=== PATIENT | female | born 1960 | race Caucasian/White ===

== ENCOUNTER 2016-09-04 11:00 | Emergency (ER) | payer OTHER ==
--- NOTE | 2016-09-04 11:34 | PDOC ---
History of Present Illness - General Chief Complaint: Syncope/Near Syncope Stated Complaint: SYNCOPE Time Seen by Provider: 09/04/16 11:20 - History of Present Illness Initial Comments: 09/04/16 14:23 Complaint: Headache History of present illness: Patient was accompanying her to the ER for treatment of his nosebleed. At the time of discharge, the patient felt faint and slowly collapsed to the floor. This was witnessed and she did not strike her head or appear to injure her neck or extremities. She appeared to be unresponsive for approximately 30 seconds, then awoke, without confusion but with a left lower facial droop and slurred speech. This lasted for several minutes, and then resolve spontaneously as well. Her reports that this has happened many times in the past, in similar situations, always with the same facial deformity and difficulty speaking. Review of systems: After the incident, the patient reported headache. However, there were no visual or focal neurologic symptoms or unsteadiness of gait. There was no chest pain, shortness of breath, abdominal pain, nausea, vomiting, diarrhea. Remainder systems reviewed and found to be negative Past medical history: Fibromyalgia, anxiety, depression, COPD, GERD, headaches, chronic narcotic use. She is maintained on a morphine patch as well as Valium. She takes Plavix because of these episodes, presumably because her doctor feels this may be a TIA. 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 She has relatives in [place] and [place], and her has a brother in the [place] area. She denies alcohol, tobacco, other street drugs or nonprescription drugs, prior use of heroin or other intravenous substances. Family history: Reviewed and noncontributory including early coronary artery disease, metabolic disease including diabetes, cancer, psychiatric or addictive diseases Physical exam: Alert, oriented 3, well-developed well-nourished, no acute distress after syncopal episode. Afebrile, vital signs normal. There was transient left lower facial paralysis and slurred speech which resolved and minutes. According to her , she has had exactly the same symptoms on numerous occasions after fainting in the past PERRLA 3 mm, fundi benign with sharp disc margins and good central venous pulsations, ENT clear Neck without tenderness or deformity, full range of motion without pain, no nodes masses or bruits Lungs clear to P&A with full breath sounds throughout bilaterally. No chest wall or rib cage tenderness or deformity CV S1 and S2 normal without murmur rub or gallop pulses full and symmetric no JVD or edema no bruits Abdomen soft nontender without mass or organomegaly No pelvis or spine point tenderness or deformity Extremities no CCE. Full range of motion of the hips shoulders, and other joints , without visible or palpable signs of trauma Neurological C2 to 12 intact. Strength full and symmetric. No focal sensory or motor deficits. Gait stable and unimpaired Impression: Vasovagal syncope with transient neurological deficits, completely resolved. Identical to similar episodes in the past, according to her who is in attendance. Plan: CT labs and observation. Further medical therapy depending on results Past History - Past Medical History Allergies/Adverse Reactions: Allergies Allergy/AdvReac Type Severity Reaction Status Date / Time cephalexin monohydrate Allergy Verified 09/04/16 11:10 [From Keflex] erythromycin base Allergy Verified 09/04/16 11:10 ibuprofen Allergy Verified 09/04/16 11:10 Penicillins Allergy Verified 09/04/16 11:10 Home Medications: Ambulatory Orders Folic Acid 0.8 mg PO DAILY 10/21/12 Tiotropium [place] [Spiriva] 1 inh IH DAILY 10/21/12 Clopidogrel Bisulfate [Plavix -] 75 mg PO DAILY 05/15/15 Omeprazole [Prilosec (RX)] 40 mg PO DAILY 05/15/15 Amitriptyline HCl [Elavil -] 25 mg PO BID #60 tablet 05/16/15 Diazepam [Valium] 5 mg PO BID 08/01/15 FENTANYL 25mcg PATCH [DURAGESIC 25mcg PATCH -] 37.5 each TD Q72H 08/01/15 Zolpidem Tartrate [Ambien] 10 mg PO HS 08/01/15 Amitriptyline HCl [Elavil -] 75 mg PO HS tablet 08/04/15 Bupropion HCl [Wellbutrin Xl -] 150 mg PO DAILY tab.sr.24h 08/04/15 Topiramate [Topamax -] 25 mg PO BID tablet 08/04/15 Anemia: No Asthma: Yes Cancer: Yes (cervical) CVA: Yes (tiax2, 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) COPD: No CHF: No Dementia: No Diabetes: No GI Disorders: No Disorders: No HTN: Yes Hypercholesterolemia: No Liver Disease: No Seizures: No Thyroid Disease: No - Surgical History Abdominal Surgery: Yes Appendectomy: Yes Cholecystectomy: Yes - Psycho/Social/Smoking Cessation Hx Anxiety: No Suicidal Ideation: No Smoking Status: No Smoking History: Current every day smoker Have you smoked in the past 12 months: Yes Number of Cigarettes Smoked Daily: 10 'Breaking Loose' booklet given: 08/02/15 Hx Alcohol Use: No Drug/Substance Use Hx: No Substance Use Type: None Hx Substance Use Treatment: No Neuro Specific PMHX - Complaint Specific PMHX Glaucoma: No Herniated Disk: No Laminectomy: No Migraine: Yes Multiple Sclerosis: No TIA: No ED Treatment Course - LABORATORY CBC & Chemistry Diagram: 09/04/16 11:35 09/04/16 11:35 Medical Decision Making - Medical Decision Making 09/04/16 12:54 CT of the head and neck are normal. Patient is complaining of her usual headache for which she is maintained on morphine patch. She refuses to try acetaminophen. Morphine was administered with good relief of pain. 09/04/16 14:33 Patient's headache is much improved after the administration of morphine and Zofran. Neurological exam remains intact. EKG reviewed: Nonspecific T-wave changes but no acute ST depressions or elevations, and normal sinus rhythm CT of the head and neck show no abnormalities. Patient fully alert and in no pain or other distress upon discharge with her to follow-up as directed. Referred to cardiology. *DC/Admit/Observation/Transfer Diagnosis at time of Disposition: Vasovagal syncope - Discharge Dispostion Disposition: HOME Condition at time of disposition: Improved Admit: No - Referrals Referrals: Rosette Nolasco MD [Staff Physician] - 2 Days - Patient Instructions Printed Discharge Instructions: DI for Syncope in Adults (Fainting)
[2016-09-04 11:43] VITALS: BMI 28.3
[2016-09-04 12:00] LABS: INR 0.96 (0.82-1.09); PROTHROMBIN TIME (PATIENT) 10.8 SEC (10.2-13.0)
[2016-09-04 12:04] LABS: ALBUMIN 4.2 g/dl (3.5-5.0); ALK PHOS 125 U/L (32-92); ANION GAP 9 (8-16); BILIRUBIN,TOTAL 0.6 mg/dl (0.2-1.0); CALCIUM 9.6 mg/dl (8.4-10.2); CO2 23 mmol/L (22-28); CPK(DFH) 113 IU/L (26-140); CREATININE 0.7 mg/dl (0.6-1.3); GLUCOSE,RANDOM 110 mg/dl (74-106); SGOT/AST 22 U/L (10-42); SGPT/ALT 23 U/L (10-40); TOT PROT 7.3 g/dl (6.4-8.3)
[2016-09-04 12:33] LABS: TROPONIN I (DFP) < 0.03 ng/ml (0.03-0.50)
[2016-09-04] MEDS ORDERED: morphine CARPU-JECT 4 MG/1 ML DISP.SYRIN IVPUSH ONE ×2 (12:53→13:59)
[2016-09-04] MEDS ORDERED: ONDANSETRON 4 MG/2 ML VIAL IVPB ONE (12:53)
[2016-09-04] MEDS ORDERED: morphine CARPU-JECT 10 MG/1 ML DISP.SYRIN ONE ×2 (12:56→14:03)
[2016-09-04] MEDS ORDERED: ONDANSETRON 4 MG/2 ML VIAL ONE (12:56)
[2016-09-04 13:06] LABS: MCH 30.9 pg (25.7-33.7); MCHC 33.7 g/dl (32.0-36.0); MEAN CELL VOLUME 91.8 fl (80-96); WHITE BLOOD COUNT 7.2 K/mm3 (4.0-10.0)
[2016-09-04 13:07] LABS: BASOPHIL 2.1 % (0-2.0); MEAN PLT VOLUME 9.4 fl (7.5-11.1); NEUTROPHILS 50.5 % (42.8-82.8); PLATELET COUNT 249 K/MM3 (134-434); RDW 14.9 % (11.6-15.6)
[2016-09-04 13:37] VITALS: BP 125/92; PULSE 78
--- NOTE | 2016-09-06 13:59 | EKG ---
Test Reason : Blood Pressure : / mmHG Vent. Rate : 089 BPM Atrial Rate : 089 BPM P-R Int : 112 ms QRS Dur : 076 ms QT Int : 380 ms P-R-T Axes : 051 035 070 degrees QTc Int : 462 ms NORMAL SINUS RHYTHM NONSPECIFIC T WAVE ABNORMALITY PROLONGED QT WHEN COMPARED WITH ECG OF 01-AUG-2015 18:19, T WAVE AMPLITUDE HAS DECREASED IN LATERAL LEADS Confirmed by MD BARBRA, LEEANNE ([id number]) on 09/06/2016 1:59:22 PM Referred By: LEIDA Confirmed By:LEEANNE BELLE MD
== END 2016-09-04 14:28 | disposition home or self-care (01) ==
LOC: FER 11:00
PROC: 3E033NZ Introduction of Analgesics, Hypnotics, Sedatives into Peripheral Vein, Percutaneous Approach (ICD-10-PCS; principal; 2016-09-04)
PROC: 3E033GC Introduction of Other Therapeutic Substance into Peripheral Vein, Percutaneous Approach (ICD-10-PCS; 2016-09-04)
DX: R55 Syncope and collapse (principal); F17.210 Nicotine dependence, cigarettes, uncomplicated; J45.909 Unspecified asthma, uncomplicated; Z86.73 Personal history of transient ischemic attack (TIA), and cerebral infarction without residual deficits; Z85.41 Personal history of malignant neoplasm of cervix uteri; I10 Essential (primary) hypertension
CPT/HCPCS: 36415; 70450-TC; 72125-TC; 80053; 82550; 84484; 85025; 85610; 93005; 99284-25

== ENCOUNTER 2017-09-06 17:45 | Emergency (ER) | payer OTHER ==
[2017-09-06] MEDS ORDERED: SODIUM CHLORIDE 1,000 ML IV SCH (18:45)
[2017-09-06 19:01] VITALS: BMI 28.2
--- NOTE | 2017-09-06 19:03 | PDOC ---
History of Present Illness <Chele Gallardo - Last Filed: 09/06/17 20:04> - General History Source: Patient Exam Limitations: No Limitations - History of Present Illness Initial Comments: 09/06/17 20:07 The patient is a 57 year old female, with a significant past medical history of TIAxmany times(typically resolved within an hour, per >100 episodes since 2007 after a head injury), hypertension, migraines, pituitary tumor, cervical cancer, COPD, GERD, depression and anxiety, who presented to the ED for evaluation of left leg pain and ecchymosis s/p mechanical fall approximately 1 month ago, she did have LOC, an ambulance was called but pt declined medical care. While in the waiting room, family noted patient was unable to move her left upper and lower extremities, as well as a right sided facial droop and slurred speech. reports patient has had similar episodes in the past, which typically resolved within an hour. Patient denies any LOC, changes in vision, head trauma, headache, dizziness, or lightheadedness. She endorses left sided weakness, but denies any fever or chills. Pt does endorse a mild diffuse 'butsing'headache. She endorses chest pain secondary to anxiety, but denies any shortness of breath, diaphoresis, or palpitations. She denies any abdominal pain, nausea, vomiting, bladder or bowel incontinence. Patient last known well around 18:35. Patient is on Plavix. Patient states she is scheduled for a flight to [place] on saturday. Allergies: Cephalexin monohydrate, Erythromycin base, Ibuprofen, Penicillins Past Surgical History: Appendectomy, Cholecystectomy Social History: Current Everyday smoker. ETOH use(several drinks today). No recreational drug use. 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) COPD: No CHF: No Dementia: No Diabetes: No GI Disorders: No Disorders: No HTN: Yes Hypercholesterolemia: No Liver Disease: No Seizures: No Thyroid Disease: No - Surgical History Abdominal Surgery: Yes Appendectomy: Yes Cholecystectomy: Yes - Suicide/Smoking/Psychosocial Hx Smoking Status: No Smoking History: Current every day smoker Have you smoked in the past 12 months: Yes Number of Cigarettes Smoked Daily: 30 Information on smoking cessation initiated: Yes 'Breaking Loose' booklet given: 08/02/15 Hx Alcohol Use: Yes (TODAY, ALISE) Drug/Substance Use Hx: No Substance Use Type: None Hx Substance Use Treatment: No <Odilon Villa - Last Filed: 09/06/17 20:46> - Past Medical History Allergies/Adverse Reactions: Allergies Allergy/AdvReac Type Severity Reaction Status Date / Time cephalexin monohydrate Allergy Verified 09/04/16 11:10 [From Keflex] erythromycin base Allergy Verified 09/04/16 11:10 ibuprofen Allergy Verified 09/04/16 11:10 Penicillins Allergy Verified 09/04/16 11:10 Home Medications: Ambulatory Orders Folic Acid 0.8 mg PO DAILY 10/21/12 Tiotropium [place] [Spiriva] 1 inh IH DAILY 10/21/12 Clopidogrel Bisulfate [Plavix -] 75 mg PO DAILY 05/15/15 Omeprazole [Prilosec (RX)] 40 mg PO DAILY 05/15/15 Amitriptyline HCl [Elavil -] 25 mg PO BID #60 tablet 05/16/15 Diazepam [Valium] 5 mg PO BID 08/01/15 FENTANYL 25mcg PATCH [DURAGESIC 25mcg PATCH -] 37.5 each TD Q72H 08/01/15 Zolpidem Tartrate [Ambien] 10 mg PO HS 08/01/15 Amitriptyline HCl [Elavil -] 75 mg PO HS tablet 08/04/15 Bupropion HCl [Wellbutrin Xl -] 150 mg PO DAILY tab.sr.24h 08/04/15 Topiramate [Topamax -] 25 mg PO BID tablet 08/04/15 Neuro Specific PMHX - Complaint Specific PMHX Glaucoma: No Herniated Disk: No Laminectomy: No Migraine: Yes Multiple Sclerosis: No TIA: No <Odilon Villa - Last Filed: 09/06/17 20:46> Review of Systems - Review of Systems Able to Perform ROS?: Yes Comments:: 09/06/17 20:08 CONSTITUTIONAL: No reported: Fever, Chills, Diaphoresis, Generalized Weakness, Malaise, Loss of Appetite HEENT: No reported: Rhinorrhea, Nasal Congestion, Throat Pain, Throat Swelling, Difficulty Swallowing, Mouth Swelling, Ear Pain, Eye Pain, Visual Changes CARDIOVASCULAR: Reported: Chest Pain No reported: Syncope, Palpitations, Irregular Heart Rate, Lightheadedness, Peripheral Edema RESPIRATORY: No reported: Cough, Shortness of Breath, SOB with Exertion, Orthopnea, Wheezing , Stridor, Hemoptysis GASTROINTESTINAL: No reported: Abdominal pain, Abdominal Distension, Nausea, Vomiting, Diarrhea, Constipation, Melena, Hematochezia GENITOURINARY: No reported: Dysuria, Frequency, Urgency, Hesitancy, Flank Pain, Genital Pain MUSCULOSKELETAL: Reported: Left leg pain and ecchymosis No reported: Joint Swelling, Back pain, Neck Pain SKIN: No reported: Rash, Itching, Pallor ENDOCRINE: No reported: Unexplained Weight Gain, Unexplained Weight Loss, Heat Intolerance , Cold Intolerance NEUROLOGIC: Reported: Left sided weakness, right facial droop, slurred speech , Headache, Paresthesias, No reported: Vertigo, Lightheadedness, Seizure, Mental Status Changes, Incontinence PSYCHIATRIC: No reported: Anxiety, Depression <Odilon Villa - Last Filed: 09/06/17 20:46> *Physical Exam - Vital Signs Last Vital Signs Temp Pulse Resp BP Pulse Ox 75 20 110/81 99 09/06/17 19:51 09/06/17 19:51 09/06/17 19:51 09/06/17 19:51 <Chele Gallardo - Last Filed: 09/06/17 20:04> - Vital Signs Last Vital Signs Temp Pulse Resp BP Pulse Ox 86 16 100/67 92 L 09/06/17 18:53 09/06/17 18:53 09/06/17 18:53 09/06/17 18:53 - Physical Exam Comments: 09/06/17 19:00 GENERAL: The patient is awake, alert, and fully oriented, Nontoxic - in no acute distress. HEAD: Normocephalic, mild posterior scal ptenderness, EYES: extraocular movements intact, sclera anicteric, conjunctiva clear. ENT: Normal voice, dry mucous membranes. NECK: Normal range of motion, supple LUNGS: Breath sounds equal, clear to auscultation bilaterally. No wheezes, no rhonchi, no rales. HEART: Regular rate and rhythm, normal S1 and S2 without murmur, rub or gallop. ABDOMEN: Soft, nontender, No guarding, no rebound. . No CVA tenderness EXTREMITIES: no edema, no focal tenderness NEUROLOGICAL: No facial assymetry, Normal speech, PSYCH: Normal mood, normal affect. SKIN: Warm, Dry, normal turgor, NEURO: Mental status: The patient is oriented x3. Facial: R sided facial droop Motor: L arm paralysis, LLE paralysis, no movement against gravity, Sensation: deminished sensation in her L extremities (pt notes this is chronic) Cerebellar: [id number] is normal in RUE Gait: deferred 09/06/17 20:43 NEURO: Mental status: The patient is oriented x3. Facial - symmetric movement of smile, minimal R nasolabial fold flattening, normal speech Motor: able to lift L arm against grivity +drive, RUE 5/5 strength, able to wiggle toes in LLE, no movement against gravity of LLE Sensation: deminished sensation in LUE, LLE <Allen,Odilon - Last Filed: 09/06/17 20:46> NIH Stroke Scale - Last Known Well Date/Time & Onset Date Last Known Well: 09/06/17 Time Last Known Well: 18:35 - Initial Evaluation Level of consciousness: Alert Ask patient the month and their age: Answers both correctly Ask patient to open & close eyes; make fist and let go: Obeys both correctly Best gaze (horizontal eye movement): Normal Visual field testing: No visual field loss Facial paresis (Show teeth/raise eyebrows/close eyes tight): Partial paralysis ( total or near paralysis of lower face) Motor Function: Left Arm: Some effort against gravity Motor Function: Right Arm: Normal (extends arm 90 (or 45) degrees for 10 seconds without drift Motor Function: Left Leg: Some effort against gravity Motor Function: Right Leg: Normal (extends leg 30 degrees for 5 seconds without drift) Limb Ataxia: No ataxia Sensory(Use pinprick test arms,legs,trunk,face/side to side): Normal Best language (Describe picture, name items, read sentences): No Aphasia Dysarthria (read several words): Normal articulation Extinction and Inattention: No abnormality - Total Score NIH Stroke Scale Score: 6 <Odilon Villa - Last Filed: 09/06/17 20:46> tPA Exclusion Checklist 0-3hr - Time Elapsed Date last known well: 09/06/17 Time last known well: 18:35 Elaspsed time: Day(s) and 2 Hour(s) and 10 Minutes - Exclusion Criteria 0-3hr SBP greater than 185 or DBP greater than 110mmHg despite tx: No Recent IC/spinal surgery,head trauma or stroke w/in last 3mo: Yes Hx of previous IC hemorrhage, IC neoplasm, AVM or aneurysm: No Active internal bleeding: No Blding diathesis(low plt ct, inc PTT,INR>1.7 or use of NOAC): No Symptoms suggest subarachnoid hemorrhage: No CT demonstrates multilobar infarct(>1/3 cerebral hemiphere): No Arterial puncture at noncompressible site in previous 7 days: No Blood glucose concentration less than 50mg/dL (2.7mmol/L): No - Relative Exclusion Criteria 0-3h Life expectancy <1yr/severe co-morbid illness/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 Muir at 18:52. Awaiting call back. Case discussed with Dr. Blood at 18:56. Second call placed to Dr. Muir at 20:00. Awaiting call back. Discussed further plan with Dr. Muir at 20:06. Documentation prepared by Chele Gallardo, acting as medical records field technician for Odilon Villa MD. <Chele Gallardo - Last Filed: 09/06/17 20:04> - Medical Decision Making Note: 09/06/17 19:01 57y F hx frequent TIA (>100 episodes per , with same presentation of R sided facial droop, L sided arm/leg weakness, last episode was about a year ago ) on plavix , htn, migraines, pituitary tumor, cervical, ca, copd, gerd, depression/anxiety, presents with complaint of L thigh pain secondary to a fall approximately 1 month ago, was heading on a trip abroad and wanted to be evaluated. The pt was waiting in the waiting room when she suddenly felt weak - pt visualzied to have R facial droop and L hemiparisis pt noted to be hypertensive to 190s here in the ED. onset of sypmtoms approximately 18:35, nurse called waiting room, and i immediatly evaluated bel pt, the pt was moved to a room. Nasreen lassiter was called and CT head was ordered 09/06/17 19:31 case was discussed with dr. muir at approx 19:00 thinks that this stereotyped frequent episodes may be due to another etiology ( ? 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 her LLE leg is still weak pt does fit into TPA window, however my concern is whether this is actually a CVA vs another cause and whether the risk of TPA would outweigh the benefit of it. will disuss with dr. Muir regarding further plan. per patient she has no history of seizures, she also states she is noncomplaint with medications. pt is awaiting CTA and lab work 09/06/17 20:[address] muir, agrees with recurrent stereotypied symptoms, with associated headache, consider psosible complicated migrane and would defer TPA at this point pending CTA and further imaging. if +CTA brain - consider transer to [facility] for neuro[facility]. if cta neg, will admit here for neuro eval <Odilon Villa - Last Filed: 09/06/17 20:46> Discharge Disposition - Discharge Dispostion Last Admission D/C Date: 08/04/15 <Odilon Villa - Last Filed: 09/06/17 20:46> ED Treatment Course - LABORATORY CBC & Chemistry Diagram: 09/06/17 19:18 09/06/17 19:18 - ADDITIONAL ORDERS Additional order review: Laboratory Results 09/06/17 19:18 PT with INR 11.6 INR 1.04 09/06/17 19:18 RBC 4.36 MCV 93.4 MCHC 34.2 RDW 13.9 MPV 8.2 Neutrophils % 45.3 Lymphocytes % 48.1 H Monocytes % 4.4 Eosinophils % 1.5 Basophils % 0.7 - RADIOLOGY Radiograph Interpretation: 09/06/17 20:04 EXAM: Head CT INTERPRETED BY: Dr. Damico REVIEWED BY: Dr. Villa IMPRESSION: No acute intracranial hemorrhage, mass effects or hydrocephalus. No compelling evidence of acute transcortical infarction at this time. MRI is much more sensitive in detecting acute infarctions. Please correlate clinically - Medications Given in the ED: ED Medications Discontinued Medications Generic Name Dose Route Start Last Admin Trade Name Freq PRN Reason Stop Dose Admin Morphine Sulfate 2 mg 09/06/17 19:47 09/06/17 20:02 Morphine Injection - IVPUSH 09/06/17 19:48 2 mg ONCE ONE Administration <Chele Gallardo - Last Filed: 09/06/17 20:04> - LABORATORY CBC & Chemistry Diagram: 09/06/17 19:18 09/06/17 19:18 <Odilon Villa - Last Filed: 09/06/17 20:46>
[2017-09-06 19:36] LABS: BASO % 0.7 % (0-2.0); EOS % 1.5 % (0-4.5); HEMATOCRIT 40.8 % (32.4-45.2); LYMPH % 48.1 % (8-40); MCHC 34.2 g/dl (32.0-36.0); MEAN CELL VOLUME 93.4 fl (80-96); MEAN PLT VOLUME 8.2 fl (7.5-11.1); MONO % 4.4 % (3.8-10.2); NEUT % 45.3 % (42.8-82.8); PLATELET COUNT 314 K/MM3 (134-434); RBC 4.36 M/mm3 (3.60-5.2); RDW 13.9 % (11.6-15.6); WHITE BLOOD COUNT 7.1 K/mm3 (4.0-10.8)
[2017-09-06 19:44] LABS: INR 1.04 (0.82-1.09); PROTHROMBIN TIME (PATIENT) 11.6 SEC (10.2-13.0)
[2017-09-06] MEDS ORDERED: morphine CARPU-JECT 2 MG/1 ML DISP.SYRIN IVPUSH ONE (19:47)
[2017-09-06 19:52] VITALS: BP 110/81; PULSE 75
[2017-09-06] MEDS ORDERED: morphine CARPU-JECT 2 MG/1 ML DISP.SYRIN ONE (19:53)
[2017-09-06 20:05] LABS: ALBUMIN 3.8 g/dl (3.5-5.0); ALK PHOS 113 U/L (32-92); ANION GAP 12 (8-16); BLOOD UREA NITROGEN 9 mg/dl (7-18); CALCIUM 9.4 mg/dl (8.4-10.2); CHLORIDE 102 mmol/L (98-107); CHOLESTEROL 234 mg/dl; CO2 21 mmol/L (22-28); GLUCOSE,RANDOM 106 mg/dl (74-106); HDL CHOLESTEROL 60 mg/dl (29-89); POTASSIUM 4.1 mmol/L (3.5-5.1); SGOT/AST 22 U/L (10-42); SGPT/ALT 18 U/L (10-40); SODIUM 135 mmol/L (136-145); TOT PROT 6.8 g/dl (6.4-8.3); TRIGLYCERIDES 272 mg/dl (35-160)
[2017-09-06 20:08] LABS: BILIRUBIN,TOTAL < 0.5 mg/dl (0.2-1.0); CREATININE < 0.8 mg/dl (0.6-1.3)
[2017-09-06 20:09] LABS: LDL CHOLESTEROL (ONLY SJRH) 120 mg/dL (5-100)
--- NOTE | 2017-09-06 22:31 | PDOC ---
*Physical Exam - Vital Signs Last Vital Signs Temp Pulse Resp BP Pulse Ox 75 20 110/81 99 09/06/17 19:51 09/06/17 19:51 09/06/17 19:51 09/06/17 19:51 ED Treatment Course - LABORATORY CBC & Chemistry Diagram: 09/06/17 19:18 09/06/17 19:18 - ADDITIONAL ORDERS Additional order review: Laboratory Results 09/06/17 09/06/17 09/06/17 19:18 19:18 19:18 PT with INR INR Sodium 135 L Potassium 4.1 Chloride 102 Carbon Dioxide 21 L Anion Gap 12 BUN 9 D Creatinine < 0.8 Creat Clearance w eGFR > 60 Random Glucose 106 Calcium 9.4 Total Bilirubin < 0.5 AST 22 ALT 18 D Alkaline Phosphatase 113 H Creatine Kinase Troponin I < 0.03 Total Protein 6.8 Albumin 3.8 Triglycerides 272 H Cholesterol 234 Total LDL Cholesterol 120 H HDL Cholesterol 60 Blood Type A POSITIVE Antibody Screen Negative 09/06/17 09/06/17 19:18 19:00 PT with INR 11.6 INR 1.04 Sodium Potassium Chloride Carbon Dioxide Anion Gap BUN Creatinine Creat Clearance w eGFR Random Glucose Calcium Total Bilirubin AST ALT Alkaline Phosphatase Creatine Kinase 86 Troponin I Total Protein Albumin Triglycerides Cholesterol Total LDL Cholesterol HDL Cholesterol Blood Type Antibody Screen 09/06/17 19:18 RBC 4.36 MCV 93.4 MCHC 34.2 RDW 13.9 MPV 8.2 Neutrophils % 45.3 Lymphocytes % 48.1 H Monocytes % 4.4 Eosinophils % 1.5 Basophils % 0.7 - Medications Given in the ED: ED Medications Discontinued Medications Generic Name Dose Route Start Last Admin Trade Name Ezequielq PRN Reason Stop Dose Admin Morphine Sulfate 2 mg 09/06/17 19:47 09/06/17 20:02 Morphine Injection - IVPUSH 09/06/17 19:48 2 mg ONCE ONE Administration Progress Note - Progress Note Progress Note: Care of this patient received from Dr. Villa. This patient with a long history of recurrent right facial weakness/left hemiplegia TIAs presents with left leg issues but developed full pattern of neurologic deficit while awaiting results of her workup. Over the next few hours, her deficits resolved. On reexamination, patient has no evidence of right facial weakness or left hemiplegia worse than her baseline (according to the patient). Her only complaint was headache, mainly located in the vertex area. The patient states that she has this headache very commonly and is responsive to narcotics only. 2 mg of morphine IV had been given earlier with only partial relief of her pain. However, the patient did not want any further narcotics at this time. It is noted above, consulted with , environmental coordinator for neurology. Brain and neck CTA was performed to evaluate for large vessel thrombus. If these studies were positive for large vessel thrombus, the patient would be transferred to [facility] for thrombectomy. Brain/neck CTA negative for acute pathology/large vessel thrombus. There is evidence of sphenoid sinusitis Results discussed with the patient. The patient states that she has never been told that she had any sinusitis; she was informed that this may be at least part of the etiology of her chronic headaches. Otherwise, she feels at her baseline neurologically. She strongly prefers to be discharged stating that she has been admitted previously for her TIAs without significant change in her clinical course. She states that she will return immediately if she has any new neurologic deficit or recurrent pattern of right facial weakness/left hemiplegia. *DC/Admit/Observation/Transfer Diagnosis at time of Disposition: History of TIAs Sphenoid sinusitis Qualifiers: Chronicity: unspecified Qualified Code(s): J32.3 - Chronic sphenoidal sinusitis - Discharge Dispostion Disposition: HOME Condition at time of disposition: Stable - Referrals - Patient Instructions Printed Discharge Instructions: Transient Ischemic Attack Additional Instructions: Continue medications as prescribed Return to ER immediately if you have symptoms of TIA or severe, persistent headache - Post Discharge Activity
--- NOTE | 2017-09-08 20:41 | EKG ---
Test Reason : Blood Pressure : / mmHG Vent. Rate : 072 BPM Atrial Rate : 072 BPM P-R Int : 118 ms QRS Dur : 088 ms QT Int : 404 ms P-R-T Axes : 051 015 064 degrees QTc Int : 442 ms NORMAL SINUS RHYTHM NORMAL ECG WHEN COMPARED WITH ECG OF 04-SEP-2016 11:52, LIKELY NO SIGNIFICANT CHANGES Confirmed by MICHEL SAGE MD ([id number]) on 09/08/2017 8:41:02 PM Referred By: MD LUND Confirmed By:MICHEL SAGE MD
== END 2017-09-06 22:35 | disposition home or self-care (01) ==
LOC: FER 17:45
PROC: 3E033NZ Introduction of Analgesics, Hypnotics, Sedatives into Peripheral Vein, Percutaneous Approach (ICD-10-PCS; principal; 2017-09-06)
DX: J32.3 Chronic sphenoidal sinusitis (principal); Z86.73 Personal history of transient ischemic attack (TIA), and cerebral infarction without residual deficits; I10 Essential (primary) hypertension; J44.9 Chronic obstructive pulmonary disease, unspecified; K21.9 Gastro-esophageal reflux disease without esophagitis; F41.8 Other specified anxiety disorders; Z85.41 Personal history of malignant neoplasm of cervix uteri
CPT/HCPCS: 36415; 70450-TC; 70496-TC; 70498-TC; 80053; 82465; 82550; 83718; 83721; 84478; 84484; 85025; 85610; 86850; 86900; 86901; 93005; 96374; 99284-25

== ENCOUNTER 2018-12-08 18:27 | Observation (INO) | payer OTHER ==
[2018-12-08 19:23] LABS: BASO % 0.1 % (0-2.0); EOS % 2.8 % (0-4.5); HEMATOCRIT 43.6 % (32.4-45.2); HEMOGLOBIN 14.4 GM/dl (10.7-15.3); MCH 31.1 pg (25.7-33.7); MEAN CELL VOLUME 94.1 fl (80-96); MEAN PLT VOLUME 9.3 fl (7.5-11.1); MONO % 6.5 % (3.8-10.2); NEUT % 46.6 % (42.8-82.8); PLATELET COUNT 262 K/MM3 (134-434); RBC 4.64 M/mm3 (3.60-5.2); RDW 13.4 % (11.6-15.6); WHITE BLOOD COUNT 9.3 K/mm3 (4.0-10.8)
[2018-12-08] MEDS ORDERED: morphine CARPU-JECT 4 MG/1 ML DISP.SYRIN IVPUSH ONE (19:39)
[2018-12-08] MEDS ORDERED: morphine SULFATE 4 MG/ML VIAL ONE (19:46)
--- NOTE | 2018-12-08 20:26 | PDOC ---
Documentation entered by Laura Craig SCRIBE, acting as scribe for Reese Massey MD. Reese Massey MD: This documentation has been prepared by the Rafa hayes Lincy, SCRIBE, under my direction and personally reviewed by me in its entirety. I confirm that the documentation accurately reflects all work, treatment, procedures, and medical decision making performed by me. History of Present Illness - General Chief Complaint: Chest Pain Stated Complaint: CHEST PAIN AND HEADACHE Time Seen by Provider: 12/08/18 19:24 History Source: Patient Exam Limitations: No Limitations - History of Present Illness Initial Comments: 12/08/18 19:53 The patient is a 58-year-old female with patient reports past medical history significant for TIA x2 (on Plavix), lupus, fibromyalgia (on Fentanyl patch), pituitary adenoma, WPW, ataxia and neuropathy presents to the emergency department with chest pain and a headache. The patient reports diffuse chest pain across the chest since 4:00 am last night. The patient reports taking her home dose of clopidogrel, ASA, diazepam, and a fentanyl patch, all without relief. The patient reports an associated headache as well. The patient reports the headache is chronic. Denies any neck stiffness or fevers, no N/V. The patient states she was seen at [facility] last week for similar chest pain. Pt reports she had an "abnormal blood enzyme and was admitted but left AMA because the hospital was so busy. The patient reports she had a stress test done about 6 weeks ago in [place], which she "failed". The patient reportedly follows with a PCP, cross roller, neurologist, and pain management doctor, but they are all in [place]. Does not have any providers in the [place]. Allergies: Per patient: she is allergic to "everything except cipro, levaquin and morphine." Family history: Heart attack: Father (age 46), Fathers sister (age 32). Social history: 15 cigarettes a day, social alcohol user, and once a week CBD oil use. Denies the use of other recreational drugs. Surgical history: Appendectomy, Cholecystectomy. PCP, Cards, Neurology, Pain management: In [place]. Past History - Past Medical History Allergies/Adverse Reactions: Allergies Allergy/AdvReac Type Severity Reaction Status Date / Time codeine Allergy Severe Difficulty Verified 12/08/18 18:33 Breathing cephalexin monohydrate Allergy Verified 09/04/16 11:10 [From Keflex] erythromycin base Allergy Verified 09/04/16 11:10 ibuprofen Allergy Verified 09/04/16 11:10 NSAIDS (Non-Steroidal Allergy Verified 12/08/18 21:58 Anti-Inflamma Penicillins Allergy Verified 09/04/16 11:10 Home Medications: Ambulatory Orders Folic Acid 0.8 mg PO DAILY 10/21/12 Tiotropium [place] [Spiriva] 1 inh IH DAILY 10/21/12 Omeprazole [Prilosec (RX)] 40 mg PO DAILY 05/15/15 Amitriptyline HCl [Elavil -] 25 mg PO BID #60 tablet 05/16/15 Diazepam [Valium] 5 mg PO BID 08/01/15 Zolpidem Tartrate [Ambien] 10 mg PO HS 08/01/15 Bupropion HCl [Wellbutrin Xl -] 150 mg PO DAILY tab.sr.24h 08/04/15 Topiramate [Topamax -] 25 mg PO BID tablet 08/04/15 Aspirin 81 mg PO DAILY 12/08/18 Clopidogrel Bisulfate [Clopidogrel] 75 mg PO DAILY 12/08/18 Diazepam 10 mg PO TID 12/08/18 Atorvastatin Ca [Lipitor] 40 mg PO HS tablet 12/11/18 [place]-3 Acid Ethyl Esters [Lovaza -] 2 gm PO BID cap 12/11/18 Cardiac Disorders: Yes (WPW ELEVATED ENZYMES) COPD: No - Surgical History Appendectomy: Yes Cholecystectomy: Yes - Suicide/Smoking/Psychosocial Hx Smoking History: Current every day smoker Number of Cigarettes Smoked Daily: 20 Information on smoking cessation initiated: No Hx Alcohol Use: Yes (SOCIAL) Drug/Substance Use Hx: No Review of Systems - Review of Systems Able to Perform ROS?: Yes Comments:: 12/08/18 19:54 GENERAL/CONSTITUTIONAL: No fever or chills. No weakness. HEAD, EYES, EARS, NOSE AND THROAT: No change in vision. No ear pain or discharge. No sore throat. CARDIOVASCULAR: +chest pain. no shortness of breath, no loss of consciousness RESPIRATORY: No cough, wheezing, or hemoptysis. GASTROINTESTINAL: No nausea, vomiting, diarrhea or constipation. GENITOURINARY: No dysuria, frequency, or change in urination. MUSCULOSKELETAL: No joint or muscle swelling or pain. No neck or back pain. SKIN: No rash NEUROLOGIC: +headache. No vertigo, no change in strength/sensation. ENDOCRINE: No increased thirst. No abnormal weight change. HEMATOLOGIC/LYMPHATIC: No anemia, easy bleeding, or history of blood clots. ALLERGIC/IMMUNOLOGIC: No hives or skin allergy. *Physical Exam - Vital Signs Last Vital Signs Temp Pulse Resp BP Pulse Ox 98.3 F 100 H 20 108/83 96 12/08/18 18:29 12/08/18 18:29 12/08/18 18:29 12/08/18 18:29 12/08/18 18:29 - Physical Exam Comments: 12/08/18 19:54 GENERAL: Awake, alert, and fully oriented, in no acute distress. HEAD: No signs of trauma EYES: PERRLA, EOMI, sclera anicteric, conjunctiva clear ENT: Auricles normal inspection, hearing grossly normal, nares patent, oropharynx clear without exudates. Moist mucosa NECK: Nontender, no stepoffs, Normal ROM, supple, no lymphadenopathy, JVD, or masses LUNGS: Breath sounds equal, clear to auscultation bilaterally. No wheezes, and no crackles HEART: Regular rate and rhythm, normal S1 and S2, no murmurs, rubs or gallops ABDOMEN: Soft, nontender, normoactive bowel sounds. No guarding, no rebound. No masses EXTREMITIES: Normal range of motion, no edema. No clubbing or cyanosis. No cords , erythema, or tenderness NEUROLOGICAL: Cranial nerves II through XII intact. 5/5 strength and sensation in all extremities, Normal speech, normal gait, normal cerebellar function SKIN: Warm, Dry, normal turgor, no rashes or lesions noted. Heart Score/ECG Review - History History: Slightly suspicious - Electrocardiogram EKG: Non specific repolarization disturbance - Age Age: 45-65 - Risk Factors Risk Factors Heart Score: Yes Hx Hypertension, Yes Smoking History, Yes Positive family hx of cardiac disease Based on the list above the patient has:: >/=3 risk factors or Hx atherosclerotic disease - Troponin Troponin: </= normal limit - Score Heart Score - Total: 4 - ECG Impressions Comment:: 12/08/18 20:03 NSR, no STEs, mild lateral ST depressions, TWI in aVL, axis winl, short [place] interval, otherwise normal intervals, rate 94 ED Treatment Course - LABORATORY CBC & Chemistry Diagram: 12/11/18 07:17 12/11/18 07:17 - ADDITIONAL ORDERS Additional order review: Laboratory Results 12/08/18 19:15 Troponin I < 0.03 12/08/18 19:15 RBC 4.64 MCV 94.1 MCHC 33.0 RDW 13.4 MPV 9.3 Neutrophils % 46.6 Lymphocytes % 44.0 H Monocytes % 6.5 Eosinophils % 2.8 Basophils % 0.1 - RADIOLOGY Radiology Studies Ordered: Category Date Time Status CHEST X-RAY PORTABLE* [RAD] Stat Radiology 12/08/18 19:38 Taken - Medications Given in the ED: ED Medications Discontinued Medications Generic Name Dose Route Start Last Admin Trade Name Freq PRN Reason Stop Dose Admin Morphine Sulfate 4 mg 12/08/18 19:39 12/08/18 19:52 Morphine Injection - IVPUSH 12/08/18 19:40 4 mg ONCE ONE Administration Medical Decision Making - Medical Decision Making 12/08/18 20:04 58 F with chest pain and headache. Pt's chest pain is concerning for ACS given her numerous risk factors, including family history of early KS, HTN, TIAs, and smoking history. EKG with mild ST depressions and TWI in lateral leads. Pt's headache is chronic in nature and unchanged from her baseline. - labs, trop - CXR - Pain control - Admit tele *DC/Admit/Observation/Transfer Diagnosis at time of Disposition: Chest pain - Discharge Dispostion Disposition: HOME Condition at time of disposition: Improved - Referrals - Patient Instructions - Post Discharge Activity - Attestations Physician Attestion: 12/09/18 09:32 I, Dr. Reese Massey MD, attest that this document has been prepared under my direction and personally reviewed by me in its entirety. I further attest, that it accurately reflects all work, treatment, procedures and medical decision -making performed by me.
[2018-12-08 21:03] LABS: BLOOD UREA NITROGEN 10.8 mg/dL (7-18); CALCIUM 8.9 mg/dL (8.5-10.1); CREATININE 0.7 mg/dL (0.55-1.3); POTASSIUM 3.9 mmol/L (3.5-5.1); TOT PROT 7.3 g/dl (6.4-8.2)
[2018-12-08 21:04] LABS: ALBUMIN 3.8 g/dl (3.4-5.0); BILIRUBIN,TOTAL 0.2 mg/dL (0.2-1)
[2018-12-08] MEDS ORDERED: ALPRAZolam 0.25 MG TABLET PO STA (21:51)
[2018-12-08] MEDS ORDERED: KETOROLAC TROMETHAMINE 15 MG/ML VIAL IVPUSH ONE (21:52)
[2018-12-08] MEDS ORDERED: ALPRAZolam 0.25 MG TABLET ONE (21:53)
[2018-12-08] MEDS ORDERED: KETOROLAC TROMETHAMINE 15 MG/ML VIAL ONE (21:53)
[2018-12-08] MEDS ORDERED: morphine CARPU-JECT 2 MG/1 ML DISP.SYRIN IVPUSH ONE (22:00)
[2018-12-08 22:58] VITALS: BMI 27.3
--- NOTE | 2018-12-08 23:38 | HP ---
CHIEF COMPLAINT: headache and chest pain PCP: has doctors in [place] HISTORY OF PRESENT ILLNESS: This is a 58 year old female with history of lupus, fibromyalgia, neuropathy, ataxia, IBS, WPW, and TIA who presents to the ER with symptoms of chest pain which started yesterday at 4pm associated with nausea and diaphoresis. She also reports generalized pain and a headache which is chronic.She appears very anxious. She is a smoker with 1 1/2 pack per day and started smoking when she was a teenager. She also reports she uses medical marijuana and drinks alcohol daily. She reports she was at [facility] last week and she found to have a "mild heart attack" , she did not undergo a workup and signed out AMA.Patient reports that at baseline has low blood pressure with systolic blood pressure of 80. In the ER EKG revealed a normal sinus rhythm with bundle branch block, no signs of acute ischemia. First troponin was normal. CXR was unremarkable. She received morphine 4 mg IV with no improvement in chest pain symptoms. Patient has multiple allergies to codeine, demeral, dilaudid and NSAID's as reported. She appears to have "pain seeking" behaviors as she requested another dose of IV morphine one hour after administration of prior dose and appeared hostile and insisting on receiving another dosage. 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 Smoking:yes, 1 1/2 pack per day since she was a teenager Alcohol:yes,drinks alcohol daily, last drink yesterday Drugs: reports using medical marijuana Family History:noncontributory Allergies codeine Allergy (Severe, Verified 12/08/18 18:33) Difficulty Breathing PT STATES ALL PAIN MEDS EXCEPT MORPHINE Penicillins Allergy (Severe, Verified 12/08/18 18:32) Difficulty Breathing PT STATES ALL ANTIBIOTICS EXCEPT CIPRO AND LEVAQUIN NSAIDS (Non-Steroidal Anti-Inflamma Allergy (Verified 12/08/18 21:58) HOME MEDICATIONS: Home Medications Medication Instructions Recorded Aspirin 81 mg PO DAILY 12/08/18 Clopidogrel Bisulfate [Clopidogrel] 75 mg PO DAILY 12/08/18 Diazepam 10 mg PO TID 12/08/18 REVIEW OF SYSTEMS CONSTITUTIONAL: Absent: fever, chills, diaphoresis, generalized weakness, malaise, loss of appetite, weight change HEENT: Absent: rhinorrhea, nasal congestion, throat pain, throat swelling, difficulty swallowing, mouth swelling, ear pain, eye pain, visual changes CARDIOVASCULAR: Absent: chest pain, syncope, palpitations, irregular heart rate, lightheadedness , peripheral edema RESPIRATORY: Absent: cough, shortness of breath, dyspnea with exertion, orthopnea, wheezing, stridor, hemoptysis GASTROINTESTINAL: Absent: abdominal pain, abdominal distension, nausea, vomiting, diarrhea, constipation, melena, hematochezia GENITOURINARY: Absent: dysuria, frequency, urgency, hesitancy, hematuria, flank pain, genital pain MUSCULOSKELETAL: Absent: myalgia, arthralgia, joint swelling, back pain, neck pain SKIN: Absent: rash, itching, pallor HEMATOLOGIC/IMMUNOLOGIC: Absent: easy bleeding, easy bruising, lymphadenopathy, frequent infections ENDOCRINE: Absent: unexplained weight gain, unexplained weight loss, heat intolerance, cold intolerance NEUROLOGIC: Absent: headache, focal weakness or paresthesias, dizziness, unsteady gait, seizure, mental status changes, bladder or bowel incontinence PSYCHIATRIC: Absent: anxiety, depression, suicidal or homicidal ideation, hallucinations. PHYSICAL EXAMINATION Vital Signs - 24 hr 12/08/18 12/08/18 12/08/18 18:29 20:02 22:37 Temperature 98.3 F 97.8 F Pulse Rate 88 105 H Pulse Rate [ 78 Left] Respiratory 20 16 18 Rate Blood Pressure 108/83 96/63 Blood Pressure 124/85 [Left] O2 Sat by Pulse 96 98 95 Oximetry (%) GENERAL: awake alert and fully oriented, anxious HEAD: normal EYES: pupils equal round and reactive to light EARS, NOSE, THROAT: ears normal nares patent LUNGS: breath sounds clear to auscultation bilaterally no wheezes no crackles no accessory muscle use HEART: regular rate and rhythm normal S1 and S2 ABDOMEN: soft nontender not distended normoactive bowel sounds MUSCULOSKELETAL: normal range of motion at all joints UPPER EXTREMITIES: 2+ pulses warm, well-perfused no cyanosis LOWER EXTREMITIES: 2+ pulses warm well-perfused no pitting edema NEUROLOGICAL: speech clear no facial grimace no facial droop PSYCHIATRIC: anxious SKIN: warm dry normal turgor no rashes or lesions noted normal capillary refill Laboratory Results - last 24 hr 12/08/18 12/08/18 12/08/18 19:15 19:15 19:15 WBC 9.3 RBC 4.64 Hgb 14.4 Hct 43.6 MCV 94.1 MCH 31.1 MCHC 33.0 RDW 13.4 Plt Count 262 MPV 9.3 Absolute Neuts (auto) 4.3 Neutrophils % 46.6 Lymphocytes % 44.0 H Monocytes % 6.5 Eosinophils % 2.8 Basophils % 0.1 Sodium 141 Potassium 3.9 Chloride 107 Carbon Dioxide 26 Anion Gap 8 BUN 10.8 Creatinine 0.7 Est GFR (CKD-EPI)AfAm 112.26 Est GFR (CKD-EPI)NonAf 96.86 Random Glucose 168 H Calcium 8.9 Total Bilirubin 0.2 AST 20 ALT 23 Alkaline Phosphatase 108 Creatine Kinase 91 Troponin I < 0.03 Total Protein 7.3 Albumin 3.8 ASSESSMENT/PLAN: 58 year old female with history of lupus, fibromyalgia, neuropathy, ataxia, IBS , WPW, and TIA 7 weeks ago who presents with symptoms of chest pain which started yesterday at 4pm associated with nausea and diaphoresis. She also reported generalized weakness and headache which is chronic. #1 Chest Pain(appears atypical) EKG with no signs of acute ischemia, BBB noted. Has no signs of fluid overload. -Continue to trend troponins -Cardiology consulted- Dr. Cook -add baby asa and statin -check echocardiogram #2 Anxiety Ordered one dose of xanax #3 Headache(Chronic) Reported had TIA 7 weeks ago - Neurology consulted- Dr. King -Continue with baby aspirin and statin therapy FEN Regular diet, monitor electrolytes DVT TEDS, SCD's Visit type - Emergency Visit Emergency Visit: Yes ED Registration Date: 12/08/18 Care time: The patient presented to the Emergency Department on the above date and was hospitalized for further evaluation of their emergent condition. - New Patient This patient is new to me today: Yes Date on this admission: 12/08/18 - Critical Care Critical Care patient: No
[2018-12-09] MEDS ORDERED: morphine CARPU-JECT 2 MG/1 ML DISP.SYRIN IVPUSH STA (03:15)
[2018-12-09 08:01] LABS: HEMATOCRIT 38.2 % (32.4-45.2); HEMOGLOBIN 13.1 GM/dl (10.7-15.3); MCH 32.7 pg (25.7-33.7); MCHC 34.5 g/dl (32.0-36.0); MEAN CELL VOLUME 94.9 fl (80-96); MEAN PLT VOLUME 9.2 fl (7.5-11.1); PLATELET COUNT 239 K/MM3 (134-434); RBC 4.02 M/mm3 (3.60-5.2); RDW 13.8 % (11.6-15.6); WHITE BLOOD COUNT 9.1 K/mm3 (4.0-10.8)
[2018-12-09 09:20] LABS: BLOOD UREA NITROGEN 7.2 mg/dL (7-18); CALCIUM 8.5 mg/dL (8.5-10.1); CREATININE 0.7 mg/dL (0.55-1.3); POTASSIUM 3.8 mmol/L (3.5-5.1)
[2018-12-09 09:28] LABS: CHOLESTEROL 198 mg/dL (50-200); HDL CHOLESTEROL 42 mg/dL (40-60); LDL CHOLESTEROL (ONLY DFH) 88 mg/dl (5-100); TRIGLYCERIDES 342 mg/dL (0-150)
[2018-12-09] MEDS ORDERED: ASPIRIN 81 MG CHEWABLE TABLETS PO SCH (10:00)
[2018-12-09] MEDS ORDERED: diazePAM 5 MG TABLET PO ONE (12:00)
--- NOTE | 2018-12-09 12:20 | CON.NEURO ---
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, Peripheral Neuropathy, TIA ( with L sided weakness) Cardio/Vascular: Yes: HTN, Other (WPW) Pulmonary: Yes: COPD Gastrointestinal: Yes: Peptic Ulcer Disease ...: No Rheumatology: Yes: Fibromyalgia Endocrine: Yes: Other (pituitary tumor) - Past Surgical History Past Surgical History: Yes: Cholecystectomy, Hysterectomy, Tonsillectomy - Alcohol/Substance Use Hx Alcohol Use: Yes (SOCIAL) History of Substance Use: reports: Prescription (narcotics (fentanyl patches and morphine)) - Smoking History Smoking history: Current every day smoker Have you smoked in the past 12 months: Yes Aproximately how many cigarettes per day: 20 - Social History 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, 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 History of Recent Travel: Yes ([place], [place]) Home Medications - Allergies Allergies/Adverse Reactions: Allergies Allergy/AdvReac Type Severity Reaction Status Date / Time codeine Allergy Severe Difficulty Verified 12/08/18 18:33 Breathing cephalexin monohydrate Allergy Verified 09/04/16 11:10 [From Keflex] erythromycin base Allergy Verified 09/04/16 11:10 ibuprofen Allergy Verified 09/04/16 11:10 NSAIDS (Non-Steroidal Allergy Verified 12/08/18 21:58 Anti-Inflamma Penicillins Allergy Verified 09/04/16 11:10 - Home Medications Home Medications: Ambulatory Orders Folic Acid 0.8 mg PO DAILY 10/21/12 Tiotropium [place] [Spiriva] 1 inh IH DAILY 10/21/12 Clopidogrel Bisulfate [Plavix -] 75 mg PO DAILY 05/15/15 Omeprazole [Prilosec (RX)] 40 mg PO DAILY 05/15/15 Amitriptyline HCl [Elavil -] 25 mg PO BID #60 tablet 05/16/15 Diazepam [Valium] 5 mg PO BID 08/01/15 FENTANYL 25mcg PATCH [DURAGESIC 25mcg PATCH -] 37.5 each TD Q72H 08/01/15 Zolpidem Tartrate [Ambien] 10 mg PO HS 08/01/15 Amitriptyline HCl [Elavil -] 75 mg PO HS tablet 08/04/15 Bupropion HCl [Wellbutrin Xl -] 150 mg PO DAILY tab.sr.24h 08/04/15 Topiramate [Topamax -] 25 mg PO BID tablet 08/04/15 Aspirin 81 mg PO DAILY 12/08/18 Clopidogrel Bisulfate [Clopidogrel] 75 mg PO DAILY 12/08/18 Diazepam 10 mg PO TID 12/08/18 Family Disease History - Family Disease History Family Disease History: CA: Sister (cervical cancer; MS), Other: Father ( murdered), Mother (brain tumors?), Brother (tumor in his aorta) Physical Exam-Neuro Vital Signs: Vital Signs Temperature 98.1 F 12/09/18 09:14 Pulse Rate 74 12/09/18 09:14 Respiratory Rate 16 12/09/18 09:14 Blood Pressure 91/56 L 12/09/18 09:14 O2 Sat by Pulse Oximetry (%) 95 12/09/18 09:14 Labs: CBC, BMP 12/09/18 07:21 12/09/18 07:21 Assessment/Plan CC Headahce and recent tia ( admitted in [place] for tia ) HPI 58 year old female history of lupus, fibromyalgia, neuuroaphty, IBS, WPW AND tia. Patient is on asirin and statin. 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 She lives six months in [facility] and six months in [place]. Patient is complaining of headache and she was given morphine . Patient says she has extensive work up done in [place] including mri of brain , she was recenlty in [facility] [place] for work up of chest pain. She also have chest pain and headache during this hospital stay. 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 Smoking:yes, 1 1/2 pack per day since she was a teenager Alcohol:yes,drinks alcohol daily, last drink yesterday Drugs: reports using medical marijuana Family History:noncontributory Allergies codeine Allergy (Severe, Verified 12/08/18 18:33) Difficulty Breathing PT STATES ALL PAIN MEDS EXCEPT MORPHINE Penicillins Allergy (Severe, Verified 12/08/18 18:32) Difficulty Breathing PT STATES ALL ANTIBIOTICS EXCEPT CIPRO AND LEVAQUIN NSAIDS (Non-Steroidal Anti-Inflamma Allergy (Verified 12/08/18 21:58) HOME MEDICATIONS: Home Medications Medication Instructions Recorded Aspirin 81 mg PO DAILY 12/08/18 Clopidogrel Bisulfate [Clopidogrel] 75 mg PO DAILY 12/08/18 Diazepam 10 mg PO TID 12/08/18 NEUROLOGICAL EXAMINATION Alert oriented x 3, speech is normal, no neck stiffnes eomi, pupils reactive, no face asymmetry moving all extremity, she feels left side weak vazquez test is positive on right side ( indicating functional weakness) left arm would not fall on her face sensation is normal no imaging done Assessment/Plan 1. left side hemiparesis seems to be functional in nature, consider pt and psych consult, as per patient she has extensive work up done in [place] and she did not come for these syptoms 2. tension headhace with analgesic overuse and drug seeking behavior, continue current analgesic , consider nortripytline if headhace continue Thanking you so much Cleve Leroy MD
--- NOTE | 2018-12-09 12:50 | EKG ---
Test Reason : Blood Pressure : / mmHG Vent. Rate : 069 BPM Atrial Rate : 069 BPM P-R Int : 108 ms QRS Dur : 088 ms QT Int : 432 ms P-R-T Axes : 040 028 065 degrees QTc Int : 462 ms SINUS RHYTHM WITH SHORT [place] OTHERWISE NORMAL ECG NO PREVIOUS ECGS AVAILABLE Confirmed by Miguel Angela MD ([id number]) on 12/09/2018 12:50:01 PM Referred By: Confirmed By:Miguel Angela MD
--- NOTE | 2018-12-09 12:50 | EKG ---
Test Reason : Blood Pressure : / mmHG Vent. Rate : 069 BPM Atrial Rate : 069 BPM P-R Int : 128 ms QRS Dur : 086 ms QT Int : 416 ms P-R-T Axes : 042 -05 045 degrees QTc Int : 445 ms NORMAL SINUS RHYTHM NORMAL ECG WHEN COMPARED WITH ECG OF 09-DEC-2018 03:04, NO SIGNIFICANT CHANGE WAS FOUND Confirmed by Miguel Angela MD ([id number]) on 12/09/2018 12:49:57 PM Referred By: Antonette LE Confirmed By:Miguel Angela MD
[2018-12-09] MEDS ORDERED: PATIENT'S OWN MEDICATION (NON-FORMULARY) (Omeprazole [Prilosec (Rx)] 40 MG) PO SCH (14:15)
[2018-12-09] MEDS ORDERED: PATIENT'S OWN MEDICATION (NON-FORMULARY) (Folic Acid [Folic Acid] 0.8 MG) PO SCH (14:15)
[2018-12-09] MEDS ORDERED: PATIENT'S OWN MEDICATION (NON-FORMULARY) (Tiotropium Bromide [Spiriva] 1 INH) IH SCH (14:15)
[2018-12-09] MEDS: CLOPIDOGREL BISULFATE 75 MG TABLET (FP) PO SCH (14:52)
--- NOTE | 2018-12-09 14:52 | PN ---
"Physical Exam: SUBJECTIVE: Patient seen and examined. Zhane historian. Agitated that she has not gotten anything for pain and that she has not slept. She can only take morphine for pain, received 8mg in ED but nothing since 3:00am. Stated if she does not get morphine she will call her daughter who will bring her supply of fentanyl, gabapentin, and valium from home and she will take them herself. Attempted to review patient's home meds. She gave a list but then said she does not take any of them. Meds are prescribed and filled in [place], not in [place]. No local pharmacy, no local health care providers to verify medications list. ISTOP search: no results in [place] or neighboring states (see below) OBJECTIVE: Vital Signs Period Temp Pulse Resp BP Sys/Barrera Pulse Ox Last 24 Hr 97.7 F-98.3 F 69-105 16-20 91-124/56-85 94-98 GENERAL: The patient is awake, alert, and fully oriented. Irritable, displeased. LUNGS: Breath sounds equal, clear to auscultation bilaterally, no wheezes, no crackles, no accessory muscle use. HEART: Regular rate and rhythm, S1, S2 ABDOMEN: Soft, nontender, nondistended EXTREMITIES: 2+ pulses, warm, well-perfused, no edema. NEUROLOGICAL: Cranial nerves II through XII grossly intact. Normal speech, gait not observed. Laboratory Results - last 24 hr 12/08/18 12/08/18 12/08/18 19:15 19:15 19:15 WBC 9.3 RBC 4.64 Hgb 14.4 Hct 43.6 MCV 94.1 MCH 31.1 MCHC 33.0 RDW 13.4 Plt Count 262 MPV 9.3 Absolute Neuts (auto) 4.3 Neutrophils % 46.6 Lymphocytes % 44.0 H Monocytes % 6.5 Eosinophils % 2.8 Basophils % 0.1 Sodium 141 Potassium 3.9 Chloride 107 Carbon Dioxide 26 Anion Gap 8 BUN 10.8 Creatinine 0.7 Est GFR (CKD-EPI)AfAm 112.26 Est GFR (CKD-EPI)NonAf 96.86 Random Glucose 168 H Calcium 8.9 Total Bilirubin 0.2 AST 20 ALT 23 Alkaline Phosphatase 108 Creatine Kinase 91 Troponin I < 0.03 Total Protein 7.3 Albumin 3.8 Triglycerides Cholesterol Total LDL Cholesterol HDL Cholesterol 12/09/18 12/09/18 12/09/18 00:00 00:00 07:21 WBC 9.1 RBC 4.02 Hgb 13.1 Hct 38.2 MCV 94.9 MCH 32.7 MCHC 34.5 RDW 13.8 Plt Count 239 MPV 9.2 Absolute Neuts (auto) Neutrophils % Lymphocytes % Monocytes % Eosinophils % Basophils % Sodium Potassium Chloride Carbon Dioxide Anion Gap BUN Creatinine Est GFR (CKD-EPI)AfAm Est GFR (CKD-EPI)NonAf Random Glucose Calcium Total Bilirubin AST ALT Alkaline Phosphatase Creatine Kinase Troponin I Cancelled 0.05 Total Protein Albumin Triglycerides Cholesterol Total LDL Cholesterol HDL Cholesterol 12/09/18 12/09/18 07:21 07:21 WBC RBC Hgb Hct MCV MCH MCHC RDW Plt Count MPV Absolute Neuts (auto) Neutrophils % Lymphocytes % Monocytes % Eosinophils % Basophils % Sodium 141 Potassium 3.8 Chloride 108 H Carbon Dioxide 28 Anion Gap 5 L BUN 7.2 Creatinine 0.7 Est GFR (CKD-EPI)AfAm 112.26 Est GFR (CKD-EPI)NonAf 96.86 Random Glucose 141 H Calcium 8.5 Total Bilirubin AST ALT Alkaline Phosphatase Creatine Kinase Troponin I 0.11 H Total Protein Albumin Triglycerides 342 H Cholesterol 198 Total LDL Cholesterol 88 HDL Cholesterol 42 Active Medications Generic Name Dose Route Start Last Admin Trade Name Freq PRN Reason Stop Dose Admin Aspirin 81 mg 12/10/18 10:00 Asa - PO DAILY [facility] Bupropion HCl 150 mg 12/10/18 10:00 Wellbutrin Xl - PO DAILY [facility] Clopidogrel Bisulfate 75 mg 12/09/18 14:15 Plavix - PO DAILY [facility] Diazepam 5 mg 12/09/18 22:00 Valium - PO BID [facility] Non-Formulary Medication 0.8 mg 12/09/18 14:15 Folic Acid [Folic Acid] PO DAILY [facility] Ranitidine HCl 150 mg 12/09/18 22:00 Zantac - PO BID [facility] Tiotropium [place] 2 puff 12/10/18 10:00 Spiriva Respimat IH DAILY [facility] Topiramate 25 mg 12/09/18 22:00 Topamax - PO BID [facility] ASSESSMENT/PLAN: 58 year-old female with a PMH significant for COPD, TIA x 2 (on Plavix), lupus, fibromyalgia (uses fentayl patches), WPW syndrome, headaches, ataxia, neuropathy. Placed on observation for chest pain. Chest pain --troponins mildly trending up 0.03-->0.05-->0.11-->0.13 --ECGs without signs of acute ischemic event --CXR unremarkable --given ASA, Plavix --Echo pending --telemetry monitoring --cardiology consult DVT prophylaxis: subq lovenox Dispo: continues to require observation. Full code. Search Terms: Remedios Roldanshawn, 1960 Search Date: 12/09/2018 04:22:05 PM The Drug Utilization Report below displays all of the controlled substance prescriptions, if any, that your patient has filled in the last twelve months. The information displayed on this report is compiled from pharmacy submissions to the Department, and accurately reflects the information as submitted by the pharmacies. This report was requested by: Jany Ramirez | Reference #: [id number] There are no results for the search terms that you entered. Search Terms: Remedios Vaz, 1960 Search Date: 12/09/2018 04:26:18 PM States Searched: [place], [place], [place], [place] The Drug Utilization Report below displays the controlled substance prescriptions, if any, that were dispensed in the indicated state(s). The information displayed on this report is compiled from requests submitted to other states' PMPs, and accurately reflects the information as returned by them. Blank abad indicate data not provided by other state. This report was requested by: Jany Ramirez | Reference #: [id number] Prescriptions Dispensed in [place] There are no results for the search terms that you entered. Prescriptions Dispensed in [place] There are no results for the search terms that you entered. Prescriptions Dispensed in [place] There are no results for the search terms that you entered. Prescriptions Dispensed in [place] There are no results for the search terms that you entered. Visit type - Emergency Visit Emergency Visit: Yes ED Registration Date: 12/08/18 Care time: The patient presented to the Emergency Department on the above date and was hospitalized for further evaluation of their emergent condition. - New Patient This patient is new to me today: Yes Date on this admission: 12/09/18 - Critical Care Critical Care patient: No"
[2018-12-09] MEDS ORDERED: PATIENT'S OWN MEDICATION (NON-FORMULARY) (Folic Acid [Folic Acid] 1 MG) PO SCH (16:56)
--- NOTE | 2018-12-09 17:14 | CON.CARD ---
Cardiology Consult (text) - Consultation Consultation Note: Chief Complaint: cp, PARRA History of Present Illness: 58 yo female presented with cp and PARRA. Past 3 days has had constant central chest pressure. Not better or worse with activity or rest, persistent. Also with PARRA as well. No sob palps dizzy loc pnd orthopnea le edema. 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 History of Recent Travel: Yes ([place]) Home Medications - Allergies Allergies/Adverse Reactions: Allergies Allergy/AdvReac Type Severity Reaction Status Date / Time codeine Allergy Severe Difficulty Verified 12/08/18 18:33 Breathing cephalexin monohydrate Allergy Verified 09/04/16 11:10 [From Keflex] erythromycin base Allergy Verified 09/04/16 11:10 ibuprofen Allergy Verified 09/04/16 11:10 NSAIDS (Non-Steroidal Allergy Verified 12/08/18 21:58 Anti-Inflamma Penicillins Allergy Verified 09/04/16 11:10 - Home Medications Ambulatory Orders Folic Acid 0.8 mg PO DAILY 10/21/12 Tiotropium [place] [Spiriva] 1 inh IH DAILY 10/21/12 Clopidogrel Bisulfate [Plavix -] 75 mg PO DAILY 05/15/15 Omeprazole [Prilosec (RX)] 40 mg PO DAILY 05/15/15 Amitriptyline HCl [Elavil -] 25 mg PO BID #60 tablet 05/16/15 Diazepam [Valium] 5 mg PO BID 08/01/15 FENTANYL 25mcg PATCH [DURAGESIC 25mcg PATCH -] 37.5 each TD Q72H 08/01/15 Zolpidem Tartrate [Ambien] 10 mg PO HS 08/01/15 Amitriptyline HCl [Elavil -] 75 mg PO HS tablet 08/04/15 Bupropion HCl [Wellbutrin Xl -] 150 mg PO DAILY tab.sr.24h 08/04/15 Topiramate [Topamax -] 25 mg PO BID tablet 08/04/15 Aspirin 81 mg PO DAILY 12/08/18 Clopidogrel Bisulfate [Clopidogrel] 75 mg PO DAILY 12/08/18 Diazepam 10 mg PO TID 12/08/18 Family Disease History - Family Disease History Family Disease History: [place]: Sister (cervical cancer; [place]), Other: Father ( murdered), Mother (brain tumors?), Brother (tumor in his aorta) Review of Systems - Review of Systems Constitutional: denies: Chills, Fever Eyes: denies: Eye Pain HENT: denies: Nasal Congestion Neck: denies: Stiffness Cardiovascular: denies: Edema Respiratory: denies: Orthopnea, PND Gastrointestinal: denies: Diarrhea, Rectal Bleeding Genitourinary: denies: Burning, Hematuria Integumentary: denies: Rash Neurological: reports: Weakness. denies: Numbness, Seizure, Syncope Endocrine: denies: Excessive Sweating Hematology/Lymphatic: denies: Excessive Bleeding Vital Signs: Vital Signs Period Temp Pulse Resp BP Sys/Barrera Pulse Ox Last 24 Hr 97.7 F-98.3 F 69-105 16-20 91-124/56-85 94-98 Constitutional: Yes: Well Nourished, No Distress Eyes: No: Sclera Icterus HENT: No: Nasal Congestion Neck: No: Decreased ROM Respiratory: Yes: CTA Bilaterally. No: Accessory Muscle Use, Rales, Wheezes Gastrointestinal: Yes: Normal Bowel Sounds. No: Distention, Hepatomegaly, Palpable Mass, Tenderness Cardiovascular: Yes: Regular Rate and Rhythm JVD: No Carotid Bruit: No PMI: Non-Displaced Heart Sounds: Yes: S1, S2. No: Gallop Murmur: No: Systolic Murmur, Diastolic Murmur Extremities: No: Cold, Cyanosis Edema: No Peripheral Pulses: 2+ Left Carotid, 2+ Right Carotid, 2+ Left Doralis Pedis, 2+ Right Dorsalis Pedis Integumentary: No: Jaundice Neurological: Yes: Alert, Oriented (x3) Psychiatric: No: Agitated - Other Data Labs, Other Data: serial ecgs: sr, nl intervals no ischemic changes tele: SR cxr: clear lungs Assessment/Plan 58 yo female presented with cp and PARRA. cp: -atypical cp that has been constant for 3 days. -ecgs unremarkable -echo pending -trops are in borderline range but have a slight upwards trend that is nonspecific. Her clinical picture is not c/w with acs and would expect higher trops if she had 3 days of continuous cardiac cp. Would continue to trend ce's tonight and tomorrow AM to see if any significant elevation. If ce's remain with flat trend and echo benign then ok for DC tomorrow from cardiac pov. h/o WPW s/p ablation: -ECG here without pre-excitation, tele benign h/o CVA/TIAs: -neuro following -on asa/plavix migraine HAs: -per neuro hx of syncope: -chronic, longstanding problem by report, no recent episodes. -sx's began 2006, had loop recorder then, and s/p WPW ablation at that time-- yet has had ongoing continued episodes sometimes more than once a month with neg workups in past incl TTT per pt, sees EP and cardio regularly in [place]-- they feel it is neuro issue per pt--? severe neurocardiogenic syncope disorder -Echo 05/15 here: nl LV/EF; nl RV; nl valves -Holter 05/15 here: NSR, no arrhythmias -tele benign this admit -no further cardiac testing needed at this time for this hx of syncope.
[2018-12-09] MEDS: RANITIDINE HCL 150 MG TABLET (FP) PO SCH (21:33)
[2018-12-09] MEDS: diazePAM 5 MG TABLET PO SCH (21:33)
[2018-12-09] MEDS: TOPIRAMATE 25 MG TABLET (FP) PO SCH (21:33)
[2018-12-09] MEDS ORDERED: ATORVASTATIN CA 20 MG TABLET (FP) PO SCH (22:00)
[2018-12-10] MEDS ORDERED: morphine CARPU-JECT 2 MG/1 ML DISP.SYRIN IVPUSH ONE (03:41)
--- NOTE | 2018-12-10 09:20 | ECHO ---
Version: 1 Name: LAWSON FRANK Exam: Adult Echocardiogram Study Date: 12/09/2018, 12:37 PM Age: 58 Years MMode/2D Measurements & Calculations LVOT diam: 2.01 cm Ao root diam: 2.7 cm LA dimension: 2.33 cm Doppler Measurements & Calculations MV E max rosita: 88.2 cm/sec MV A max rosita: 93.0 cm/sec MV E/A: 0.95 Ao max P.4 mmHg Ao V2 max: 126.9 cm/sec Left Ventricle The left ventricular size, thickness and function are normal. Grade I diastolic dysfunction, (abnorm al relaxation pattern). Right Ventricle The right ventricle is normal in size and function. Atria Normal left and right atrial size and function. Mitral Valve The mitral valve is grossly normal. There is trace mitral regurgitation. Tricuspid Valve The tricuspid valve is not well visualized, but is grossly normal. Aortic Valve The aortic valve is normal in structure and function. Pulmonic Valve The pulmonic valve is not well seen, but is grossly normal. Great Vessels The aortic root is normal size. Pericardium/Pleura There is no pericardial effusion. Summary Statements The left ventricular size, thickness and function are normal The right ventricle is normal in size and function. Normal left and right atrial size and function. The mitral valve is grossly normal. The tricuspid valve is not well visualized, but is grossly normal. Estimated EF 65% MD Emir Phillips 12/10/2018, 8:19 AM Ordering Physician: Gia Chamberlain Performed By: Winnie Moss
[2018-12-10] MEDS: ASPIRIN 81 MG CHEWABLE TABLETS PO SCH (09:41)
[2018-12-10] MEDS: FOLIC ACID 1 MG TABLET (FP) PO SCH (09:41)
[2018-12-10] MEDS: TOPIRAMATE 25 MG TABLET (FP) PO SCH ×2 (09:42→21:22)
[2018-12-10] MEDS: CLOPIDOGREL BISULFATE 75 MG TABLET (FP) PO SCH (09:42)
[2018-12-10] MEDS: diazePAM 5 MG TABLET PO SCH ×2 (09:42→21:22)
[2018-12-10] MEDS: RANITIDINE HCL 150 MG TABLET (FP) PO SCH ×2 (09:43→21:22)
[2018-12-10] MEDS: ENOXAPARIN NA (PORCINE) 40 MG/0.4 ML DISP.SYRIN SQ SCH (09:43)
[2018-12-10] MEDS ORDERED: PT OWN MED DRAWER 7, Y5N ONE (09:46)
[2018-12-10] MEDS ORDERED: TIOTROPIUM BROMIDE 2.5 MCG (SPIRIVA) RESPIMAT INHALER IH SCH (10:00)
--- NOTE | 2018-12-10 13:30 | PN ---
Progress Note, Physician Chief Complaint: pt reports continued bilateral chest pain radiating to left axilla and is associated with mild dyspnea on exertion. History of Present Illness: pt admitted for atypical chest pain, she continues to have slow steady troponin leak. EKG today 12/10: NSR 76bpm, non-ischemic. Echo done 12/09, no WMA, EF 65%. TRig elevated and Tchol borderline - Current Medication List Current Medications: Active Medications Aspirin (Asa -) 81 mg PO DAILY [facility] Last Admin: 12/10/18 09:41 Dose: 81 mg Bupropion HCl (Wellbutrin Xl -) 150 mg PO DAILY [facility] Last Admin: 12/10/18 09:41 Dose: 150 mg Clopidogrel Bisulfate (Plavix -) 75 mg PO DAILY [facility] Last Admin: 12/10/18 09:42 Dose: 75 mg Diazepam (Valium -) 5 mg PO BID [facility] Last Admin: 12/10/18 09:42 Dose: 5 mg Enoxaparin Sodium (Lovenox -) 40 mg SQ DAILY [facility] Last Admin: 12/10/18 09:43 Dose: 40 mg Folic Acid (Folic Acid -) 1 mg PO DAILY [facility] Last Admin: 12/10/18 09:41 Dose: 1 mg Ranitidine HCl (Zantac -) 150 mg PO BID [facility] Last Admin: 12/10/18 09:43 Dose: 150 mg Tiotropium [place] (Spiriva Respimat) 2 puff IH DAILY [facility] Last Admin: 12/10/18 09:46 Dose: 2 puff Topiramate (Topamax -) 25 mg PO BID [facility] Last Admin: 12/10/18 09:42 Dose: 25 mg - Objective Vital Signs: Vital Signs Temperature 97.9 F 12/10/18 10:00 Pulse Rate 96 H 12/10/18 10:00 Respiratory Rate 18 12/10/18 10:00 Blood Pressure 95/43 L 12/10/18 10:00 O2 Sat by Pulse Oximetry (%) 94 L 12/10/18 10:00 Constitutional: Yes: Well Nourished, No Distress, Anxious Eyes: Yes: Conjunctiva Clear, PERRL HENT: Yes: Atraumatic, Normocephalic Neck: Yes: Supple, Trachea Midline Cardiovascular: Yes: Regular Rate and Rhythm Respiratory: Yes: Regular, CTA Bilaterally Gastrointestinal: Yes: Normal Bowel Sounds, Soft, Abdomen, Obese, Other Musculoskeletal: Yes: WNL Extremities: Yes: WNL Edema: No Peripheral Pulses WNL: Yes Peripheral Pulses: Left Radial: 2+, Right Radial: 2+, Left Doralis Pedis: 2+, Right Dorsalis Pedis: 2+ Integumentary: Yes: WNL Neurological: Yes: Alert, Oriented ...Motor Strength: WNL Psychiatric: Yes: WNL Labs: CBC, BMP 12/09/18 07:21 12/09/18 07:21 - ....Imaging EKG: Report Reviewed (NSR 76bpm) Problem List - Problems (1) Chest pain Assessment/Plan: daily EKGs Case discussed with Dr. Marc from [facility], will perform nuclear stress test in AM SErial cardiac enzymes morphine PRN chest pain start statin/ fish tabs for borderline chol and elevated trig continue ASA/Plavix for h/o TIA Code(s): R07.9 - CHEST PAIN, UNSPECIFIED (2) Chronic headache disorder Assessment/Plan: Topamax and folic acid for chronic headaches Code(s): R51 - HEADACHE (3) Tobacco dependence Assessment/Plan: consider nicoderm patch if patient has urge to smoke tobacco cessation counseling Code(s): F17.200 - NICOTINE DEPENDENCE, UNSPECIFIED, UNCOMPLICATED (4) Depression Assessment/Plan: Wellbutrin XL 150mg daily Code(s): F32.9 - MAJOR DEPRESSIVE DISORDER, SINGLE EPISODE, UNSPECIFIED (5) Prophylactic measure Assessment/Plan: Lovenox daily OOB to chair Ambulate as tolerated Zantac BID Code(s): Z29.9 - ENCOUNTER FOR PROPHYLACTIC MEASURES, UNSPECIFIED (6) Chronic pain syndrome Assessment/Plan: valium daily pain management consult Code(s): G89.4 - CHRONIC PAIN SYNDROME (7) Opiate dependence, continuous Assessment/Plan: pt reports taking fentanyl patch no prior radiographic imaging available, will hold off on starting intensive narcotic regimen Code(s): F11.20 - OPIOID DEPENDENCE, UNCOMPLICATED Impression/Plan Impression/Plan: Code status: Full Visit type - Emergency Visit Emergency Visit: Yes ED Registration Date: 12/08/18 Care time: The patient presented to the Emergency Department on the above date and was hospitalized for further evaluation of their emergent condition. - New Patient This patient is new to me today: Yes Date on this admission: 12/10/18 - Critical Care Critical Care patient: No - Discharge Referral Referred to [facility] Med [facility] No
[2018-12-10] MEDS ORDERED: morphine CARPU-JECT 2 MG/1 ML DISP.SYRIN ONE (13:35)
[2018-12-10] MEDS: morphine CARPU-JECT 2 MG/1 ML DISP.SYRIN IVPUSH PRN ×3 (13:42→21:23)
[2018-12-10 15:07] LABS: MAGNESIUM 1.9 mg/dL (1.8-2.4)
[2018-12-10] MEDS ORDERED: MAGNESIUM SULF 50% (8.12 MEQ/2 ML-1 GM VIAL) IVPB ONE (15:58)
--- NOTE | 2018-12-10 16:22 | PN ---
Progress Note, Physician Chief Complaint: Seen and examined. TELE: NSR, rare single VPC, no sustained arrhythmias. C/o constant band like pain across precordium: not positional, not pleuritic, no ass N/V or diaphoresis. Constant for several days. Echo was normal: no pericardial effusion, nl biV fxn, no evidence RV enlargement or PHTN TnI is flat in the indeterminate range and CPKs are all normal. History of Present Illness: Asking for MSO4 for pain for her fibromyalgia - Current Medication List Current Medications: Active Medications Aspirin (Asa -) [address] [facility] Last Admin: 12/10/18 09:41 Dose: 81 mg Atorvastatin Calcium (Lipitor -) 10 mg PO [facility] Bupropion HCl (Wellbutrin Xl -) [address] [facility] Last Admin: 12/10/18 09:41 Dose: 150 mg Clopidogrel Bisulfate (Plavix -) [address] [facility] Last Admin: 12/10/18 09:42 Dose: 75 mg Diazepam (Valium -) [address] [facility] Last Admin: 12/10/18 09:42 Dose: 5 mg Enoxaparin Sodium (Lovenox -) [address] [facility] Last Admin: 12/10/18 09:43 Dose: 40 mg Folic Acid (Folic Acid -) [address] [facility] Last Admin: 12/10/18 09:41 Dose: 1 mg Morphine Sulfate (Morphine Injection -) 1 mg IVPUSH Q4H PRN PRN Reason: PAIN LEVEL 7 - 10 Last Admin: 12/10/18 13:42 Dose: 1 mg [id number] Ethyl Esters (Lovaza -) [address] [facility] Ranitidine HCl (Zantac -) [address] [facility] Last Admin: 12/10/18 09:43 Dose: 150 mg Tiotropium [place] (Spiriva Respimat) [address] [facility] Last Admin: 12/10/18 09:46 Dose: 2 puff Topiramate (Topamax -) [address] [facility] Last Admin: 12/10/18 09:42 Dose: 25 mg - Objective Vital Signs: Vital Signs Temperature 97.7 F 12/10/18 14:00 Pulse Rate 81 12/10/18 14:00 Respiratory Rate 18 12/10/18 14:00 Blood Pressure 103/51 L 12/10/18 14:00 O2 Sat by Pulse Oximetry (%) 93 L 12/10/18 14:00 Constitutional: Yes: No Distress, Calm Eyes: Yes: Conjunctiva Clear, EOM Intact Cardiovascular: Yes: Regular Rate and Rhythm Respiratory: Yes: CTA Bilaterally (left basilar rales that clear with coughing.) Gastrointestinal: Yes: Soft (NT, no RUQ tenderness. No epigastric tenderness. No rebound or guarding.) Edema: No (warm. Nida's - b/l) Neurological: Yes: Alert, Oriented ...Motor Strength: WNL Labs: CBC, BMP 12/09/18 07:21 12/09/18 07:21 Laboratory Tests 12/09/18 12/09/18 12/09/18 00:00 07:21 07:21 WBC 9.1 Hgb 13.1 Plt Count 239 Creatine Kinase Troponin I 0.05 0.11 H 12/09/18 12/09/18 12/09/18 14:30 20:50 20:50 WBC Hgb Plt Count Creatine Kinase 53 Troponin I 0.13 H 0.18 H 12/10/18 12/10/18 12/10/18 07:13 07:13 14:25 WBC Hgb Plt Count Creatine Kinase 53 Troponin I 0.26 H 0.22 H 12/10/18 14:31 WBC Hgb Plt Count Creatine Kinase 48 Troponin I - ....Imaging EKG: Image Reviewed Assessment/Plan Assessment/Plan 58 yo female presented with atypical CP and indeterminate range/equivocal, flat TnI. 1. Chest pain: -atypical cp that has been constant for 3 days. -ecgs unremarkable -echo normal: nl LV/RV, no PHTN, no pericardial dz, no aortic pathology -trops are in borderline range but have a slight upwards trend that is nonspecific. Her clinical picture is not c/w with acs and would expect higher trops if she had 3 days of continuous cardiac cp. -Plan for Lexiscan MPI in AM for further CV risk stratification. 2. H/o WPW s/p ablation: -ECG here without pre-excitation, tele benign 3. H/o CVA/TIAs: -neuro following -on asa/plavix 4. Migraine HAs: -per neuro 5. Hx of syncope: -chronic, longstanding problem by report, no recent episodes. -sx's began 2006, had loop recorder then, and s/p WPW ablation at that time-- yet has had ongoing continued episodes sometimes more than once a month with neg workups in past incl TTT per pt, sees EP and cardio regularly in [place]-- they feel it is neuro issue per pt--? severe neurocardiogenic syncope disorder -Echo 05/15 here: nl LV/EF; nl RV; nl valves -Holter 05/15 here: NSR, no arrhythmias -tele benign this admit -no further cardiac testing needed at this time for this hx of syncope.
[2018-12-10] MEDS: OMEGA-3 ACID ETHYL ESTERS (FATTY-ACIDS) 1 GM CAPSULE (FP) PO SCH (21:22)
[2018-12-10] MEDS ORDERED: ATORVASTATIN CA 40 MG TABLET (FP) PO SCH (22:00)
[2018-12-10] MEDS ORDERED: ATORVASTATIN CA 10 MG TABLET (FP) PO SCH (22:00)
[2018-12-11] MEDS: morphine CARPU-JECT 2 MG/1 ML DISP.SYRIN IVPUSH PRN ×2 (01:59→07:57)
[2018-12-11 08:16] LABS: HEMATOCRIT 40.8 % (32.4-45.2); HEMOGLOBIN 13.7 GM/dl (10.7-15.3); MCHC 33.6 g/dl (32.0-36.0); MEAN CELL VOLUME 95.2 fl (80-96); MEAN PLT VOLUME 8.7 fl (7.5-11.1); PLATELET COUNT 259 K/MM3 (134-434); RBC 4.29 M/mm3 (3.60-5.2); RDW 13.6 % (11.6-15.6); WHITE BLOOD COUNT 7.7 K/mm3 (4.0-10.8)
[2018-12-11 08:21] LABS: ALBUMIN 3.4 g/dl (3.4-5.0); BILIRUBIN,TOTAL 0.4 mg/dl (0.2-1); CALCIUM 8.8 mg/dl (8.5-10); CREATININE 0.7 mg/dl (0.55-1.3); MAGNESIUM 2.1 mg/dL (1.8-2.4); POTASSIUM 4.1 mmol/L (3.5-5.1); TOT PROT 6.1 g/dl (6.4-8.2)
[2018-12-11] MEDS ORDERED: PT OWN MED DRAWER 7, Y5N ONE (08:29)
[2018-12-11 08:43] VITALS: BP 109/66; PULSE 65; TEMP 98.2
--- NOTE | 2018-12-11 08:47 | PN ---
Progress Note, Physician Chief Complaint: chest pain associated with nausea and diaphoresis History of Present Illness: HISTORY OF PRESENT ILLNESS: This is a 58 year old female with history of lupus, fibromyalgia, neuropathy, ataxia, IBS, WPW, and TIA who presents to the ER with symptoms of chest pain which started yesterday at 4pm associated with nausea and diaphoresis. She also reports generalized pain and a headache which is chronic.She appears very anxious. She is a smoker with 1 1/2 pack per day and started smoking when she was a teenager. She also reports she uses medical marijuana and drinks alcohol daily. She reports she was at [facility] last week and she found to have a "mild heart attack" , she did not undergo a workup and signed out AMA.Patient reports that at baseline has low blood pressure with systolic blood pressure of 80. In the ER EKG revealed a normal sinus rhythm with bundle branch block, no signs of acute ischemia. First troponin was normal. CXR was unremarkable. She received morphine 4 mg IV with no improvement in chest pain symptoms. Patient has multiple allergies to codeine, demeral, dilaudid and NSAID's as reported. She appears to have "pain seeking" behaviors as she requested another dose of IV morphine one hour after administration of prior dose and appeared hostile and insisting on receiving another dosage. 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 Smoking:yes, 1 1/2 pack per day since she was a teenager Alcohol:yes,drinks alcohol daily, last drink yesterday Drugs: reports using medical marijuana Family History:noncontributory - Current Medication List Current Medications: Active Medications Aspirin (Asa -) 81 mg PO DAILY [facility] Last Admin: 12/10/18 09:41 Dose: 81 mg Atorvastatin Calcium (Lipitor -) 10 mg PO HS [facility] Last Admin: 12/10/18 21:22 Dose: 10 mg Bupropion HCl (Wellbutrin Xl -) 150 mg PO DAILY [facility] Last Admin: 12/10/18 09:41 Dose: 150 mg Clopidogrel Bisulfate (Plavix -) 75 mg PO DAILY [facility] Last Admin: 12/10/18 09:42 Dose: 75 mg Diazepam (Valium -) 5 mg PO BID [facility] Last Admin: 12/10/18 21:22 Dose: 5 mg Enoxaparin Sodium (Lovenox -) 40 mg SQ DAILY [facility] Last Admin: 12/10/18 09:43 Dose: 40 mg Folic Acid (Folic Acid -) 1 mg PO DAILY [facility] Last Admin: 12/10/18 09:41 Dose: 1 mg Morphine Sulfate (Morphine Injection -) 1 mg IVPUSH Q4H PRN PRN Reason: PAIN LEVEL 7 - 10 Last Admin: 12/11/18 07:57 Dose: 1 mg Hxixr-1-Aigp Ethyl Esters (Lovaza -) 2 gm PO BID [facility] Last Admin: 12/10/18 21:22 Dose: 2 gm Ranitidine HCl (Zantac -) 150 mg PO BID [facility] Last Admin: 12/10/18 21:22 Dose: 150 mg Tiotropium [place] (Spiriva Respimat) 2 puff IH DAILY [facility] Last Admin: 12/10/18 09:46 Dose: 2 puff Topiramate (Topamax -) 25 mg PO BID [facility] Last Admin: 12/10/18 21:22 Dose: 25 mg - Objective Vital Signs: Vital Signs Temperature 98.2 F 12/11/18 08:42 Pulse Rate 65 12/11/18 08:42 Respiratory Rate 18 12/11/18 08:42 Blood Pressure 109/66 12/11/18 08:42 O2 Sat by Pulse Oximetry (%) 96 12/11/18 08:42 Constitutional: Yes: Well Nourished, No Distress, Calm Eyes: Yes: WNL, Conjunctiva Clear, EOM Intact HENT: Yes: WNL, Atraumatic, Normocephalic Neck: Yes: WNL, Supple, Trachea Midline Cardiovascular: Yes: WNL, Regular Rate and Rhythm Respiratory: Yes: WNL, Regular, CTA Bilaterally Gastrointestinal: Yes: WNL ...Rectal Exam: Yes: Deferred Genitourinary: Yes: WNL Breast(s): Yes: WNL Musculoskeletal: Yes: WNL Extremities: Yes: WNL Integumentary: Yes: WNL Neurological: Yes: WNL, Alert, Oriented ...Motor Strength: WNL Psychiatric: Yes: WNL, Alert, Oriented Labs: CBC, BMP 12/11/18 07:17 12/11/18 07:17 Problem List - Problems (1) Chest pain Assessment/Plan: daily EKGs cardiology follwoing and appreciate input seriral cardiac enzymes, will reeat x 1 after return from stress test start statin/ fish tabs for borderline chol and elevated trig continue ASA/Plavix for h/o TIA Nuclear stress showed no ischemia today Code(s): R07.9 - CHEST PAIN, UNSPECIFIED (2) Prophylactic measure Assessment/Plan: FEN cardiac diet when NPO lifted Proph continue lovenox continue zantac Dispo maintain as inpatient until nuclear stress complete discharge planning, dc after stress full code Code(s): Z29.9 - ENCOUNTER FOR PROPHYLACTIC MEASURES, UNSPECIFIED (3) Headache Assessment/Plan: Topamax and folic acid for chronic headaches neurology following-probable tension headache with analgesic overuse and drug seeking behavior, continue current analgesic , consider nortripytline if headache continues Code(s): R51 - HEADACHE Qualifiers: Headache type: unspecified Headache chronicity pattern: acute headache Intractability: intractable Qualified Code(s): R51 - Headache (4) History of TIAs Assessment/Plan: continue asa & plavix neurology following and appreciate input Code(s): Z86.73 - PRSNL HX OF TIA (TIA), AND CEREB INFRC W/O RESID DEFICITS (5) Chronic headache disorder Code(s): R51 - HEADACHE (6) Tobacco abuse Assessment/Plan: smoking cessation counseling Code(s): Z72.0 - TOBACCO USE (7) Depression Assessment/Plan: continue home dose of Wellbutrin XL 150mg daily Code(s): F32.9 - MAJOR DEPRESSIVE DISORDER, SINGLE EPISODE, UNSPECIFIED Impression/Plan Impression/Plan: y Visit type - Emergency Visit Emergency Visit: Yes ED Registration Date: 12/08/18 Care time: The patient presented to the Emergency Department on the above date and was hospitalized for further evaluation of their emergent condition. - New Patient This patient is new to me today: Yes Date on this admission: 12/11/18 - Critical Care Critical Care patient: No - Discharge Referral Referred to [facility] Med P.C.: No
[2018-12-11] MEDS: TOPIRAMATE 25 MG TABLET (FP) PO SCH (09:20)
[2018-12-11] MEDS: CLOPIDOGREL BISULFATE 75 MG TABLET (FP) PO SCH (09:20)
[2018-12-11] MEDS: FOLIC ACID 1 MG TABLET (FP) PO SCH (09:20)
[2018-12-11] MEDS: RANITIDINE HCL 150 MG TABLET (FP) PO SCH (09:20)
[2018-12-11] MEDS: diazePAM 5 MG TABLET PO SCH (09:20)
[2018-12-11] MEDS: ASPIRIN 81 MG CHEWABLE TABLETS PO SCH (09:20)
[2018-12-11] MEDS: OMEGA-3 ACID ETHYL ESTERS (FATTY-ACIDS) 1 GM CAPSULE (FP) PO SCH (09:20)
[2018-12-11] MEDS: ENOXAPARIN NA (PORCINE) 40 MG/0.4 ML DISP.SYRIN SQ SCH (09:21)
[2018-12-11] MEDS ORDERED: REGADENOSON 0.4 MG/5 ML PRE-FILLED SYRINGE IVPUSH ONE ×2 (10:20→10:30)
--- NOTE | 2018-12-11 13:27 | PN ---
Progress Note (short form) - Note Progress Note: s: C/o constant band like pain across precordium: not positional, not pleuritic , no associated N/V or diaphoresis. Constant for several days. Echo was normal: no pericardial effusion, nl biV fxn, no evidence RV enlargement or PHTN mibi showed no ischemia today TnI is flat in the indeterminate range and CPKs are all normal. Current Medications Generic Name Dose Route Start Last Admin Trade Name Freq PRN Reason Stop Dose Admin Aspirin 81 mg 12/10/18 10:00 12/11/18 09:20 Asa - PO 81 mg DAILY [facility] Administration Atorvastatin Calcium 10 mg 12/10/18 22:00 12/10/18 21:22 Lipitor - PO 10 mg HS [facility] Administration Bupropion HCl 150 mg 12/10/18 10:00 12/11/18 09:20 Wellbutrin Xl - PO 150 mg DAILY [facility] Administration Clopidogrel Bisulfate 75 mg 12/09/18 14:15 12/11/18 09:20 Plavix - PO 75 mg DAILY [facility] Administration Diazepam 5 mg 12/09/18 22:00 12/11/18 09:20 Valium - PO 5 mg BID [facility] Administration Enoxaparin Sodium 40 mg 12/10/18 10:00 12/11/18 09:21 Lovenox - SQ 40 mg DAILY [facility] Administration Folic Acid 1 mg 12/10/18 10:00 12/11/18 09:20 Folic Acid - PO 1 mg DAILY [facility] Administration Morphine Sulfate 1 mg 12/10/18 13:25 12/11/18 07:57 Morphine Injection - IVPUSH 1 mg Q4H PRN Administration PAIN LEVEL 7 - 10 Plren-0-Fgcc Ethyl Esters 2 gm 12/10/18 22:00 12/11/18 09:20 Lovaza - PO 2 gm BID [facility] Administration Ranitidine HCl 150 mg 12/09/18 22:00 12/11/18 09:20 Zantac - PO 150 mg BID [facility] Administration Tiotropium [place] 2 puff 12/10/18 10:00 12/10/18 09:46 Spiriva Respimat IH 2 puff DAILY [facility] Administration Topiramate 25 mg 12/09/18 22:00 12/11/18 09:20 Topamax - PO 25 mg BID [facility] Administration - Objective Vital Signs: Vital Signs Period Temp Pulse Resp BP Sys/Barrera Pulse Ox Last 24 Hr 97.6 F-98.6 F 65-87 17-19 101-110/51-66 93-96 Constitutional: Yes: No Distress, Calm Eyes: Yes: Conjunctiva Clear Cardiovascular: Yes: Regular Rate and Rhythm Respiratory: Yes: CTA Bilaterally (left basilar rales that clear with coughing.) Gastrointestinal: Yes: Soft (NT, no RUQ tenderness. No epigastric tenderness. No rebound or guarding.) Edema: No Neurological: Yes: Alert, Oriented no jaundice diaphoresis Labs: CBC, BMP 12/11/18 07:17 12/11/18 07:17 - ....Imaging EKG: Image Reviewed Assessment/Plan 58 yo female presented with atypical CP and indeterminate range/equivocal, flat TnI. 1. Chest pain: -atypical cp that has been constant for many days. -ecgs unremarkable -echo normal: nl LV/RV, no PHTN, no pericardial dz, no aortic pathology -trops are in borderline range but have a slight upwards trend that is nonspecific. Her clinical picture is not c/w with acs and would expect higher trops if she had 3 days of continuous cardiac cp. -nuclear stress test shows no ischemia 2. H/o WPW s/p ablation: -ECG here without pre-excitation, tele benign 3. H/o CVA/TIAs: -neuro following -on asa/plavix 4. Migraine HAs: -per neuro 5. Hx of syncope: -chronic, longstanding problem by report, no recent episodes. -sx's began 2006, had loop recorder then, and s/p WPW ablation at that time-- yet has had ongoing continued episodes sometimes more than once a month with neg workups in past incl TTT per pt, sees EP and cardio regularly in [place]-- they feel it is neuro issue per pt--? severe neurocardiogenic syncope disorder -Echo 05/15 here: nl LV/EF; nl RV; nl valves -Holter 05/15 here: NSR, no arrhythmias -tele benign this admit -no further cardiac testing needed at this time for this hx of syncope. cardiac quinones ok for dc
--- NOTE | 2018-12-11 14:00 | DS ---
Physical Exam: SUBJECTIVE: Patient seen and examined OBJECTIVE: Vital Signs Period Temp Pulse Resp BP Sys/Barrera Pulse Ox Last 24 Hr 97.6 F-98.6 F 65-87 17-19 101-110/51-66 93-96 PHYSICAL EXAM GENERAL: The patient is awake, alert, and fully oriented, in no acute distress. HEAD: Normal with no signs of trauma. EYES: PERRL, extraocular movements intact, sclera anicteric, conjunctiva clear. ENT: Ears normal, nares patent, oropharynx clear without exudates, moist mucous membranes. NECK: Trachea midline, full range of motion, supple. LUNGS: Breath sounds equal, clear to auscultation bilaterally, no wheezes, no crackles, no accessory muscle use. HEART: Regular rate and rhythm, S1, S2 without murmur, rub or gallop. ABDOMEN: Soft, nontender, nondistended, normoactive bowel sounds, no guarding, no rebound, no hepatosplenomegaly, no masses. EXTREMITIES: 2+ pulses, warm, well-perfused, no edema. NEUROLOGICAL: Cranial nerves II through XII grossly intact. Normal speech, gait not observed. PSYCH: Normal mood, normal affect. SKIN: Warm, dry, normal turgor, no rashes or lesions noted. LABS Laboratory Results - last 24 hr 12/10/18 12/10/18 12/10/18 14:25 14:31 14:31 WBC RBC Hgb Hct MCV MCH MCHC RDW Plt Count MPV Sodium Potassium Chloride Carbon Dioxide Anion Gap BUN Creatinine Est GFR (CKD-EPI)AfAm Est GFR (CKD-EPI)NonAf Random Glucose Calcium Magnesium 1.9 Total Bilirubin AST ALT Alkaline Phosphatase Creatine Kinase 48 CK-BB (CK-1) Cancelled CK/CKMB % Calc Cancelled Troponin I 0.22 H Cancelled Total Protein Albumin 12/11/18 12/11/18 07:17 07:17 WBC 7.7 RBC 4.29 Hgb 13.7 Hct 40.8 MCV 95.2 MCH 32.0 MCHC 33.6 RDW 13.6 Plt Count 259 MPV 8.7 Sodium 139 Potassium 4.1 Chloride 109 H Carbon Dioxide 24 Anion Gap 6 L BUN 12.0 Creatinine 0.7 Est GFR (CKD-EPI)AfAm 112.26 Est GFR (CKD-EPI)NonAf 96.86 Random Glucose 98 Calcium 8.8 Magnesium 2.1 Total Bilirubin 0.4 AST 16 ALT 14 Alkaline Phosphatase 86 Creatine Kinase CK-BB (CK-1) CK/CKMB % Calc Troponin I Total Protein 6.1 L Albumin 3.4 HOSPITAL COURSE: HISTORY OF PRESENT ILLNESS: This is a 58 year old female with history of lupus, fibromyalgia, neuropathy, ataxia, IBS, WPW, and TIA who presents to the ER with symptoms of chest pain which started yesterday at 4pm associated with nausea and diaphoresis. She also reports generalized pain and a headache which is chronic.She appears very anxious. She is a smoker with 1 1/2 pack per day and started smoking when she was a teenager. She also reports she uses medical marijuana and drinks alcohol daily. She reports she was at [facility] last week and she found to have a "mild heart attack" , she did not undergo a workup and signed out AMA.Patient reports that at baseline has low blood pressure with systolic blood pressure of 80. In the ER EKG revealed a normal sinus rhythm with bundle branch block, no signs of acute ischemia. First troponin was normal. CXR was unremarkable. She received morphine 4 mg IV with no improvement in chest pain symptoms. Patient has multiple allergies to codeine, demeral, dilaudid and NSAID's as reported. She appears to have "pain seeking" behaviors as she requested another dose of IV morphine one hour after administration of prior dose and appeared hostile and insisting on receiving another dosage. 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, 1 1/2 pack per day since she was a teenager Alcohol:yes,drinks alcohol daily, last drink yesterday Drugs: reports using medical marijuana Family History:noncontributory - Current Medication List Current Medications: Active Medications Aspirin (Asa -) 81 mg PO DAILY [facility] Last Admin: 12/10/18 09:41 Dose: 81 mg Atorvastatin Calcium (Lipitor -) 10 mg PO HS [facility] Last Admin: 12/10/18 21:22 Dose: 10 mg Bupropion HCl (Wellbutrin Xl -) 150 mg PO DAILY [facility] Last Admin: 12/10/18 09:41 Dose: 150 mg Clopidogrel Bisulfate (Plavix -) 75 mg PO DAILY [facility] Last Admin: 12/10/18 09:42 Dose: 75 mg Diazepam (Valium -) 5 mg PO BID [facility] Last Admin: 06/12/19 21:22 Dose: 5 mg Enoxaparin Sodium (Lovenox -) 40 mg SQ DAILY [facility] Last Admin: 12/10/18 09:43 Dose: 40 mg Folic Acid (Folic Acid -) 1 mg PO DAILY [facility] Last Admin: 12/10/18 09:41 Dose: 1 mg Morphine Sulfate (Morphine Injection -) 1 mg IVPUSH Q4H PRN PRN Reason: PAIN LEVEL 7 - 10 Last Admin: 12/11/18 07:57 Dose: 1 mg Esxrw-4-Ebaq Ethyl Esters (Lovaza -) 2 gm PO BID [facility] Last Admin: 12/10/18 21:22 Dose: 2 gm Ranitidine HCl (Zantac -) 150 mg PO BID [facility] Last Admin: 12/10/18 21:22 Dose: 150 mg Tiotropium [place] (Spiriva Respimat) 2 puff IH DAILY [facility] Last Admin: 12/10/18 09:46 Dose: 2 puff Topiramate (Topamax -) 25 mg PO BID [facility] Last Admin: 12/10/18 21:22 Dose: 25 mg - Objective Vital Signs: Vital Signs Temperature 98.2 F 12/11/18 08:42 Pulse Rate 65 12/11/18 08:42 Respiratory Rate 18 12/11/18 08:42 Blood Pressure 109/66 12/11/18 08:42 O2 Sat by Pulse Oximetry (%) 96 12/11/18 08:42 Constitutional: Yes: Well Nourished, No Distress, Calm Eyes: Yes: WNL, Conjunctiva Clear, EOM Intact HENT: Yes: WNL, Atraumatic, Normocephalic Neck: Yes: WNL, Supple, Trachea Midline Cardiovascular: Yes: WNL, Regular Rate and Rhythm Respiratory: Yes: WNL, Regular, CTA Bilaterally Gastrointestinal: Yes: WNL ...Rectal Exam: Yes: Deferred Genitourinary: Yes: WNL Breast(s): Yes: WNL Musculoskeletal: Yes: WNL Extremities: Yes: WNL Integumentary: Yes: WNL Neurological: Yes: WNL, Alert, Oriented ...Motor Strength: WNL Psychiatric: Yes: WNL, Alert, Oriented Labs: CBC, BMP 12/11/18 07:17 12/11/18 07:17 Problem List - Problems (1) Chest pain Assessment/Plan: seriral cardiac enzymes plateau continue home statin/ fish tabs for borderline chol and elevated trig continue ASA/Plavix for h/o TIA Nuclear stress showed no ischemia today (20 Headache Assessment/Plan: Topamax and folic acid for chronic headaches, consider nortripytline if headache continues (4) History of TIAs Assessment/Plan: continue asa & plavix neurology following and appreciate input Code(s): Z86.73 - PRSNL HX OF TIA (TIA), AND CEREB INFRC W/O RESID DEFICITS (5) Chronic headache disorder Code(s): R51 - HEADACHE (6) Tobacco abuse Assessment/Plan: smoking cessation counseling Code(s): Z72.0 - TOBACCO USE (7) Depression Assessment/Plan: continue home dose of Wellbutrin XL 150mg daily Code(s): F32.9 - MAJOR DEPRESSIVE DISORDER, SINGLE EPISODE, UNSPECIFIED Impression/Plan Impression/Plan: y Visit type - Emergency Visit Emergency Visit: Yes ED Registration Date: 12/08/18 Care time: The patient presented to the Emergency Department on the above date and was hospitalized for further evaluation of their emergent condition. - New Patient This patient is new to me today: Yes Date on this admission: 12/11/18 - Critical Care Critical Care patient: No - Discharge Referral Referred to [facility] Med P.C.: No Date of Discharge: 12/11/18 Minutes to complete discharge: 30 Discharge Summary Reason For Visit: CHEST PAIN Current Active Problems Chest pain (Acute) Chronic headache disorder (Acute) Chronic pain syndrome (Acute) Depression (Acute) Opiate dependence, continuous (Acute) Prophylactic measure (Acute) Tobacco abuse (Acute) Tobacco dependence (Acute) Condition: Improved - Instructions Diet, Activity, Other Instructions: resume home diet Disposition: HOME - Home Medications Comprehensive Discharge Medication List: Ambulatory Orders Folic Acid 0.8 mg PO DAILY 10/21/12 Tiotropium [place] [Spiriva] 1 inh IH DAILY 10/21/12 Omeprazole [Prilosec (RX)] 40 mg PO DAILY 05/15/15 Amitriptyline HCl [Elavil -] 25 mg PO BID #60 tablet 05/16/15 Diazepam [Valium] 5 mg PO BID 08/01/15 Zolpidem Tartrate [Ambien] 10 mg PO HS 08/01/15 Bupropion HCl [Wellbutrin Xl -] 150 mg PO DAILY tab.sr.24h 08/04/15 Topiramate [Topamax -] 25 mg PO BID tablet 08/04/15 Aspirin 81 mg PO DAILY 12/08/18 Clopidogrel Bisulfate [Clopidogrel] 75 mg PO DAILY 12/08/18 Diazepam 10 mg PO TID 12/08/18 Atorvastatin [place] [Lipitor] 40 mg PO HS tablet 12/11/18 [place]-3 Acid Ethyl Esters [Lovaza -] 2 gm PO BID cap 12/11/18 Problem List - Problems (1) Chest pain Assessment/Plan: daily EKGs cardiology follwoing and appreciate input seriral cardiac enzymes, will reeat x 1 after return from stress test start statin/ fish tabs for borderline chol and elevated trig continue ASA/Plavix for h/o TIA Nuclear stress showed no ischemia today Code(s): R07.9 - CHEST PAIN, UNSPECIFIED (2) Prophylactic measure Assessment/Plan: resume normal activity Code(s): Z29.9 - ENCOUNTER FOR PROPHYLACTIC MEASURES, UNSPECIFIED (3) Headache Assessment/Plan: Topamax and folic acid for chronic headaches neurology following-probable tension headache with analgesic overuse and drug seeking behavior, continue current analgesic Code(s): R51 - HEADACHE Qualifiers: Headache type: unspecified Headache chronicity pattern: acute headache Intractability: intractable Qualified Code(s): R51 - Headache (4) History of TIAs Assessment/Plan: continue home dose asa & plavix Code(s): Z86.73 - PRSNL HX OF TIA (TIA), AND CEREB INFRC W/O RESID DEFICITS (5) Chronic headache disorder Code(s): R51 - HEADACHE (6) Tobacco abuse Assessment/Plan: smoking cessation counseling Code(s): Z72.0 - TOBACCO USE (7) Depression Assessment/Plan: continue home dose of Wellbutrin XL 150mg daily Code(s): F32.9 - MAJOR DEPRESSIVE DISORDER, SINGLE EPISODE, UNSPECIFIED This patient is new to me today: Yes Date on this admission: 12/11/18 Emergency Visit: Yes ED Registration Date: 12/08/18 Care time: The patient presented to the Emergency Department on the above date and was hospitalized for further evaluation of their emergent condition. Critical Care patient: No - Discharge Referral Referred to [facility] Med P.C.: No
--- NOTE | 2018-12-12 10:55 | EKG ---
Test Reason : Blood Pressure : / mmHG Vent. Rate : 076 BPM Atrial Rate : 076 BPM P-R Int : 116 ms QRS Dur : 086 ms QT Int : 402 ms P-R-T Axes : 042 -01 026 degrees QTc Int : 452 ms NORMAL SINUS RHYTHM NONSPECIFIC T WAVE ABNORMALITY Confirmed by JOSE ANGEL MURRY MD ([id number]) on 12/12/2018 10:54:47 AM Referred By: CELINE GERMAIN Confirmed By:JOSE ANGEL MURRY MD
== END 2018-12-11 15:27 | disposition home or self-care (01) ==
LOC: FER 18:27 → FM/S 21:46 → MERGE 21:46
PROVIDERS: ADMIT Internal Medicine; ATTEND Nurse Practitioner Acute Care
PROC: 3E033NZ Introduction of Analgesics, Hypnotics, Sedatives into Peripheral Vein, Percutaneous Approach (ICD-10-PCS; principal; 2018-12-08)
PROC: 3E0337Z Introduction of Electrolytic and Water Balance Substance into Peripheral Vein, Percutaneous Approach (ICD-10-PCS; 2018-12-08)
PROC: 3E033GC Introduction of Other Therapeutic Substance into Peripheral Vein, Percutaneous Approach (ICD-10-PCS; 2018-12-08)
PROC: 3E0F7GC Introduction of Other Therapeutic Substance into Respiratory Tract, Via Natural or Artificial Opening (ICD-10-PCS; 2018-12-08)
DX: R07.89 Other chest pain (principal); F41.9 Anxiety disorder, unspecified; I45.6 Pre-excitation syndrome; G44.209 Tension-type headache, unspecified, not intractable; M79.7 Fibromyalgia; G62.9 Polyneuropathy, unspecified; F17.210 Nicotine dependence, cigarettes, uncomplicated; Z76.5 Malingerer [conscious simulation]; I69.351 Hemiplegia and hemiparesis following cerebral infarction affecting right dominant side; F32.9 Major depressive disorder, single episode, unspecified; Z29.9 Encounter for prophylactic measures, unspecified; G89.4 Chronic pain syndrome; F11.20 Opioid dependence, uncomplicated
CPT/HCPCS: 36415; 71045-TC-FY; 78452-TC; 80048; 80053; 80061; 82550; 83735; 84484; 85025; 85027; 93005; 93017; 93306-TC; 99284-25; A9502; G0378

== ENCOUNTER 2020-04-16 13:49 | Emergency (ER) | payer OTHER ==
--- OUTSIDE RECORDS SUMMARY | 2020-04-16 13:58 | XMS ---
:1960 Author Organization [facility] Support Name Relationship Address Phone UE Unavailable Unavailable Unavailable SHARI FRANK [address] [facility] [place] [phone] SHARI FRANK Significant Other [address] [place] [phone] Re-disclosure Warning The records that you are about to access may contain information from federally- assisted alcohol or drug abuse programs. If such information is present, then the following federally mandated warning applies: This information has been disclosed to you from records protected by federal confidentiality rules (42 CFR part 2). The federal rules prohibit you from making any further disclosure of this information unless further disclosure is expressly permitted by the written consent of the person to whom it pertains or as otherwise permitted by 42 CFR part 2. A general authorization for the release of medical or other information is NOT sufficient for this purpose. The Federal rules restrict any use of the information to criminally investigate or prosecute any alcohol or drug abuse patient.The records that you are about to access may contain highly sensitive health information, the redisclosure of which is protected by Article 27-F of the [facility] Public Health law. If you continue you may haveaccess to information: Regarding HIV / AIDS; Provided by facilities licensed or operated by the [facility] Office of Mental Health; or Provided by the [facility] Office for People With Developmental Disabilities. If such information is present, then the following [facility] mandated warning applies: This information has been disclosed to you from confidential records which are protected by state law. State law prohibits you from making any further disclosure of this information without the specific written consent of the person to whom it pertains, or as otherwise permitted by law. Any unauthorized further disclosure in violation of state law may result in a fine or snf sentence or both. A general authorization for the release of medical or other information is NOT sufficient authorization for further disclosure. Insurance Providers Payer name Policy type Policy ID Covered Covered alliance party's Policy P martine / Coverage alliance party ID relationship to Cassidy Inf ormation type cassidy SHANELLE [id number] SP [id number] ESSENTIAL PLAN 1 2 MEDICAID [id number] SP [id number] MEDICAID [id number] SP [id number] SELF PAY SP INSURANCE SHANELLE [id number] S [id number] HEALTH NON CAP SHANELLE [id number] S [id number] HEALTH NON CAP [place] [id number] SP [id number] TRANSIT INS CO Results ID Date Data Source [id number] 10/04/2019 08:00:00 PM EDT [facility] Name Value Range Interpretation Description Data Sup porting Code Source(s) Document(s ) SARS [facility] CORONAVIRUS 2 RNA This lab was ordered by SHAUN LUZ and reported by [facility]. Procedure
[2020-04-16 14:11] VITALS: BP 133/86; PULSE 84; TEMP 98; BMI 22.9
[2020-04-16] MEDS ORDERED: traMADol HCL 50 MG TABLET PO ONE (14:22)
[2020-04-16] MEDS ORDERED: traMADol HCL 50 MG TABLET ONE (14:26)
--- NOTE | 2020-04-16 14:35 | PDOC ---
History of Present Illness - General Chief Complaint: Chest Pain Stated Complaint: chest pain Time Seen by Provider: 04/16/20 13:51 - History of Present Illness Initial Comments: 04/16/20 14:37 59 F with h/o COPD, fibromyalgia, lupus, wpw (s/p ablation), [place], TIA, HTN, cervical CA, depression and anxiety, presenting to ED with chest pain, back pain, headache, pain in her hands and feet. Pt reports 1 month of worsening symptoms. She notes that she has stopped taking all of her lupus and fibromyalgia medications because she doesn't like how they make her feel. Pt denies any F/C. Denies SOB. Denies cough. Pt has been seen in this ED multiple times for chest pain, and she states that the pain she has now is similar to her previous episodes. Past History - Medical History Allergies/Adverse Reactions: Allergies Allergy/AdvReac Type Severity Reaction Status Date / Time codeine Allergy Severe Difficulty Verified 04/16/20 14:16 Breathing metoclopramide [From Reglan] Allergy Intermediate Vomiting Verified 04/16/20 14:16 acetaminophen Allergy Verified 04/16/20 14:16 amoxicillin Allergy Verified 04/16/20 14:16 cephalexin monohydrate Allergy Verified 04/16/20 14:16 [From Keflex] erythromycin base Allergy Verified 04/16/20 14:16 hydromorphone [From Dilaudid] Allergy Verified 04/16/20 14:16 ibuprofen Allergy Verified 04/16/20 14:16 meperidine [From Demerol] Allergy Verified 04/16/20 14:16 NSAIDS (Non-Steroidal Allergy Verified 04/16/20 14:16 Anti-Inflamma Penicillins Allergy Verified 04/16/20 14:16 Home Medications: Ambulatory Orders Tiotropium [place] [Spiriva] 1 inh IH DAILY 10/21/12 Diazepam [Valium] 5 mg PO BID 08/01/15 Zolpidem Tartrate [Ambien] 10 mg PO HS 08/01/15 Clopidogrel Bisulfate [Clopidogrel] 75 mg PO DAILY 12/08/18 Atorvastatin Ca [Lipitor] 40 mg PO HS tablet 12/11/18 Cholecalciferol (Vitamin D3) [Vitamin D3 -] 1,000 unit PO DAILY 10/04/19 FENTANYL 50mcg PATCH [DURAGESIC 50 mcg PATCH -] 1 each TD Q72H 10/04/19 Gabapentin [Neurontin] 600 mg PO TID 10/04/19 Pantoprazole Sodium [Protonix -] 20 mg PO DAILY 10/04/19 Topiramate [Topamax] 25 mg PO BID 10/04/19 Anemia: No Asthma: Yes Cancer: Yes (cervical) Cardiac Disorders: Yes (WPW ELEVATED ENZYMES) CVA: Yes (TIA x2) COPD: Yes CHF: No Dementia: No Diabetes: No GI Disorders: No Disorders: No HTN: Yes Hypercholesterolemia: No Liver Disease: No Psychiatric Problems: Yes Seizures: No Thyroid Disease: No - Surgical History Abdominal Surgery: Yes Appendectomy: Yes Cholecystectomy: Yes - Immunization History Immunization Up to Date: No - Psycho-Social/Smoking History Smoking Status: No Smoking History: Current every day smoker Have you smoked in the past 12 months: Yes Number of Cigarettes Smoked Daily: 20 Information on smoking cessation initiated: No 'Breaking Loose' booklet given: 10/04/19 - Substance Abuse Hx (Audit-C & DAST Scrn) How often the patient has a drink containing alcohol: Never Score: In Men: 4 or > Positive; In Women: 3 or > Positive: 0 Screen Result (Pos requires Nsg. Audit-10AR): Negative In the last yr the pt used illegal drug/Rx for NonMed reason: No Score: Yes response is considered Positive: 0 Screen Result (Positive result requires Nsg. DAST-10): Negative Cardiac Specific PMH - Complaint Specific PMHX Pacemaker: No Review of Systems - Review of Systems Comments:: 04/16/20 14:38 "GENERAL/CONSTITUTIONAL: No fever or chills. No weakness. HEAD, EYES, EARS, NOSE AND THROAT: No change in vision. No ear pain or discharge . No sore throat. CARDIOVASCULAR: + chest pain, no shortness of breath, no loss of consciousness RESPIRATORY: No cough, wheezing, or hemoptysis. GASTROINTESTINAL: No nausea, vomiting, diarrhea or constipation. GENITOURINARY: No dysuria, frequency, or change in urination. MUSCULOSKELETAL: + back pain, + hand and foot pain bilaterally SKIN: No rash NEUROLOGIC: No vertigo, no change in strength/sensation. ENDOCRINE: No increased thirst. No abnormal weight change. HEMATOLOGIC/LYMPHATIC: No anemia, easy bleeding, or history of blood clots. ALLERGIC/IMMUNOLOGIC: No hives or skin allergy. *Physical Exam - Vital Signs Last Vital Signs Temp Pulse Resp BP Pulse Ox 98 F 84 18 133/86 98 04/16/20 13:50 04/16/20 13:50 04/16/20 13:50 04/16/20 13:50 04/16/20 13:50 - Physical Exam 04/16/20 14:39 "GENERAL: Awake, alert, and fully oriented, in no acute distress. HEAD: No signs of trauma EYES: PERRLA, EOMI, sclera anicteric, conjunctiva clear ENT: Auricles normal inspection, hearing grossly normal, nares patent, oropharynx clear without exudates. Moist mucosa NECK: Nontender, no stepoffs, Normal ROM, supple, no lymphadenopathy, JVD, or masses LUNGS: Breath sounds equal, clear to auscultation bilaterally. No wheezes, and no crackles HEART: Regular rate and rhythm, normal S1 and S2, no murmurs, rubs or gallops ABDOMEN: Soft, nontender, normoactive bowel sounds. No guarding, no rebound. No masses EXTREMITIES: Normal range of motion, no edema. No clubbing or cyanosis. No cords, erythema, or tenderness NEUROLOGICAL: Cranial nerves II through XII intact. 5/5 strength and sensation in all extremities, Normal speech, normal gait, normal cerebellar function SKIN: Warm, Dry, normal turgor, no rashes or lesions noted. Heart Score/ECG Review - History History: Slightly suspicious - Electrocardiogram EKG: Normal - Age Age: 45-65 - Risk Factors Risk Factors Heart Score: Yes Hx Hypertension, Yes Smoking History Based on the list above the patient has:: >/=3 risk factors or Hx atherosclerotic disease - Troponin Troponin: </= normal limit - Score Heart Score - Total: 3 - ECG Impressions Comment:: 04/16/20 14:41 NSR, no LUCINDA/STDs, no TWIs, intervals wnl, rate 73 ED Treatment Course - LABORATORY CBC & Chemistry Diagram: 04/16/20 14:45 04/16/20 14:45 - ADDITIONAL ORDERS Additional order review: Laboratory Results 04/16/20 04/16/20 14:45 14:45 Sodium 138 Potassium 3.6 Chloride 107 Carbon Dioxide 22 Anion Gap 9 BUN 13.0 Creatinine 0.7 Est GFR (CKD-EPI)AfAm 111.47 Est GFR (CKD-EPI)NonAf 96.18 Random Glucose 170 H Calcium 8.9 Total Bilirubin 0.5 AST 19 ALT 16 Alkaline Phosphatase 99 Creatine Kinase 41 Troponin I < 0.03 Total Protein 6.6 Albumin 3.8 04/16/20 14:45 RBC 4.70 MCV 88.3 MCHC 33.7 RDW 15.1 MPV 9.1 Neutrophils % 49.8 Lymphocytes % 41.6 H Monocytes % 3.8 Eosinophils % 2.5 Basophils % 2.3 H - RADIOLOGY Radiology Studies Ordered: Category Date Time Status CHEST X-RAY PORTABLE* [RAD] Stat Radiology 04/16/20 14:22 Completed - Medications Given in the ED: ED Medications Discontinued Medications Generic Name Dose Route Start Last Admin Trade Name Freq PRN Reason Stop Dose Admin Tramadol HCl 50 mg 04/16/20 14:22 04/16/20 14:46 Ultram - PO 04/16/20 14:23 50 mg ONCE ONE Administration Medical Decision Making - Medical Decision Making 04/16/20 14:41 59 F with total body pain, including atypical chest pain which is similar in nature to previous episodes that pt has been evaluated for in this hospital. EKG unchanged today. - Labs, trop - CXR - Home dose tramadol 04/16/20 15:42 Labs wnl CXR clear on my read Single trop sufficient for ACS r/o given duration of pain x 2 weeks. Pt is well appearing, with normal vitals. Clinically stable for DC at this time. I discussed the physical exam findings, ancillary test results and final diagnoses with the patient. I answered all of the patient's questions. The patient was satisfied with the care received and felt comfortable with the discharge plan and treatment plan. The patient agrees to follow up with the primary care physician within 24-72 hours. Discharge - Discharge Information Problems reviewed: Yes Clinical Impression/Diagnosis: Chest pain, Chronic headache disorder, Atypical chest pain, Bilateral hand pain, Bilateral foot pain Condition: Stable Disposition: HOME - Follow up/Referral - Patient Discharge Instructions Patient Printed Discharge Instructions: DI for Atypical Chest Pain Additional Instructions: Please follow up with your primary doctor and java xml developer within 1 week for fu rther evaluation of your pains. If you experience any new or worsening symptoms, return to the ER immediately. - Post Discharge Activity
[2020-04-16 15:01] LABS: BASO % 2.3 % (0-2.0); EOS % 2.5 % (0-4.5); HEMATOCRIT 41.5 % (32.4-45.2); LYMPH % 41.6 % (8-40); MCH 29.8 pg (25.7-33.7); MCHC 33.7 g/dl (32.0-36.0); MEAN CELL VOLUME 88.3 fl (80-96); MEAN PLT VOLUME 9.1 fl (7.5-11.1); MONO % 3.8 % (3.8-10.2); NEUT % 49.8 % (42.8-82.8); PLATELET COUNT 209 K/MM3 (134-434); RDW 15.1 % (11.6-15.6); WHITE BLOOD COUNT 6.8 K/mm3 (4.0-10.8)
[2020-04-16 15:08] LABS: ALBUMIN 3.8 g/dl (3.4-5.0); BILIRUBIN,TOTAL 0.5 mg/dl (0.2-1); CALCIUM 8.9 mg/dl (8.5-10); CREATININE 0.7 mg/dl (0.55-1.3); POTASSIUM 3.6 mmol/L (3.5-5.1); TOT PROT 6.6 g/dl (6.4-8.2)
--- NOTE | 2020-04-17 14:40 | EKG ---
Test Reason : Blood Pressure : / mmHG Vent. Rate : 073 BPM Atrial Rate : 073 BPM P-R Int : 128 ms QRS Dur : 072 ms QT Int : 422 ms P-R-T Axes : 081 001 053 degrees QTc Int : 464 ms NORMAL SINUS RHYTHM NORMAL ECG WHEN COMPARED WITH ECG OF 04-OCT-2019 19:03, NO SIGNIFICANT CHANGE WAS FOUND Confirmed by MD CARDOSO PENG ([id number]) on 04/17/2020 2:40:15 PM Referred By: AMADOU MCGOWAN Confirmed By:ZOHAIB CARDOSO MD
== END 2020-04-16 15:55 | disposition home or self-care (01) ==
LOC: FER 13:49
DX: R07.9 Chest pain, unspecified (principal); R51.9 Headache, unspecified; M79.641 Pain in right hand; M79.642 Pain in left hand; M79.671 Pain in right foot; M79.672 Pain in left foot
CPT/HCPCS: 36415; 71045-TC-FY; 80053; 82550; 84484; 85025; 93005; 99285-25

== ENCOUNTER 2021-05-18 13:10 | Observation (INO) | payer OTHER ==
[2021-05-18] MEDS ORDERED: LIDOCAINE 5% TOPICAL PATCH TP ONE (13:43)
[2021-05-18] MEDS ORDERED: SODIUM CHLORIDE 0.9% 500 ML INFUS.BAG IV ONE (13:43)
[2021-05-18] MEDS ORDERED: ONDANSETRON 4 MG/2 ML VIAL IVPUSH ONE (13:43)
[2021-05-18] MEDS ORDERED: FAMOTIDINE 20 MG/50 ML IVPB 20 MG/50 ML MG IVPB ONE ×2 (13:43→14:04)
[2021-05-18] MEDS ORDERED: morphine CARPU-JECT 2 MG/1 ML DISP.SYRIN IVPUSH ONE ×3 (14:00→16:08)
[2021-05-18] MEDS ORDERED: LIDOCAINE 5% TOPICAL PATCH ONE (14:06)
[2021-05-18] MEDS ORDERED: morphine SULFATE 4 MG/ML VIAL ONE ×4 (14:06→20:14)
[2021-05-18] MEDS ORDERED: ONDANSETRON 4 MG/2 ML VIAL ONE (14:06)
[2021-05-18 15:00] LABS: ACTIVATED PTT 27.9 SECONDS (25.2-36.5)
[2021-05-18 15:02] LABS: ALBUMIN 4.1 g/dl (3.4-5.0); BILIRUBIN,TOTAL 0.7 mg/dl (0.2-1); CALCIUM 9.4 mg/dl (8.5-10); CREATININE 0.6 mg/dl (0.55-1.3); MAGNESIUM 1.8 mg/dL (1.8-2.4); TOT PROT 7.3 g/dl (6.4-8.2)
[2021-05-18 15:04] LABS: INR 1.09 (0.82-1.09); PROTHROMBIN TIME (PATIENT) 12.1 SEC (10.2-13.0)
[2021-05-18 15:25] LABS: HEMOGLOBIN 14.2 GM/dl (10.7-15.3)
[2021-05-18 15:46] LABS: HEMATOCRIT 41.9 % (32.4-45.2); MCH 32.1 pg (25.7-33.7); MCHC 33.8 g/dl (32.0-36.0); MEAN CELL VOLUME 95.2 fl (80-96); MEAN PLT VOLUME 9.8 fl (7.5-11.1); PLATELET COUNT 320 10^3/uL (134-434); RBC 4.41 M/mm3 (3.60-5.2)
[2021-05-18 16:10] LABS: PLATELET ESTIMATE ADEQUATE
[2021-05-18] MEDS ORDERED: NITROGLYCERIN 2% OINTMENT - 1GM PACKET TD ONE ×2 (16:42→16:44)
[2021-05-18] MEDS ORDERED: CLOPIDOGREL BISULFATE 75 MG TABLET (FP) PO ONE (18:13)
[2021-05-18] MEDS ORDERED: CLOPIDOGREL BISULFATE 75 MG TABLET (FP) ONE (18:26)
[2021-05-18] MEDS ORDERED: LIDOCAINE VISCOUS 2% ORAL/TOP 100 ML BOTTLE MM ONE (18:45)
[2021-05-18] MEDS ORDERED: MAG HYDROX/AL HYDROX/SIMETH -MYLANTA- ORAL SUSPENSION PO ONE (18:45)
[2021-05-18] MEDS ORDERED: MAG HYDROX/AL HYDROX/SIMETH 30 ML UNIT-DOSE CUP ONE (18:46)
[2021-05-18] MEDS ORDERED: LIDOCAINE VISCOUS 2% ORAL/TOP 15 ML UNIT-DOSE CUP ONE (18:46)
[2021-05-18] MEDS ORDERED: POLYETHYLENE GLYCOL 3350 119 GM BTL PO PRN (20:01)
[2021-05-18] MEDS ORDERED: morphine CARPU-JECT 2 MG/1 ML DISP.SYRIN IVPUSH STA (20:12)
[2021-05-18] MEDS ORDERED: fentaNYL 50mcg/hr PATCH.TD72 TD SCH (22:15)
[2021-05-19 00:10] VITALS: BMI 26.8
[2021-05-19] MEDS ORDERED: morphine SULFATE 4 MG/ML VIAL IVPUSH ONE (01:19)
[2021-05-19 03:22] LABS: HEMATOCRIT 34.1 % (32.4-45.2); HEMOGLOBIN 11.9 GM/dL (10.7-15.3); MCH 32.5 pg (25.7-33.7); MCHC 35.1 g/dl (32.0-36.0); MEAN CELL VOLUME 92.6 fl (80-96); MEAN PLT VOLUME 8.9 fl (7.5-11.1); NEUT % 41.9 % (42.8-82.8); PLATELET COUNT 218 10^3/uL (134-434); RBC 3.68 M/mm3 (3.60-5.2); RDW 16.8 % (11.6-15.6); WHITE BLOOD COUNT 5.4 K/mm3 (4.0-10.0)
[2021-05-19 03:23] LABS: BASO % 0.3 % (0-2.0); EOS % 1.7 % (0-4.5); LYMPH % 47.9 % (8-40); MONO % 8.2 % (3.8-10.2)
[2021-05-19 03:48] LABS: CHLORIDE 108 mmol/L (98-107); SODIUM 139 mmol/L (136-145)
[2021-05-19 03:51] LABS: CALCIUM 8.6 mg/dL (8.5-10.1)
[2021-05-19 03:52] LABS: ANION GAP 5 MMOL/L (8-16); BLOOD UREA NITROGEN 12.8 mg/dL (7-18); CO2 26 mmol/L (21-32)
[2021-05-19 03:56] LABS: CREATININE 0.7 mg/dL (0.55-1.3)
[2021-05-19 03:57] LABS: GLUCOSE,RANDOM 119 mg/dL (74-106)
[2021-05-19] MEDS ORDERED: hydrOXYzine PAMOATE 25 MG CAPSULE (FP) PO PRN (04:24)
[2021-05-19] MEDS: GABAPENTIN 300 MG CAPSULE PO SCH ×2 (06:17→13:38)
[2021-05-19] MEDS ORDERED: ENOXAPARIN NA (PORCINE) 40 MG/0.4 ML DISP.SYRIN SQ SCH (10:00)
[2021-05-19] MEDS ORDERED: diazePAM 5 MG TABLET PO SCH (10:00)
[2021-05-19] MEDS ORDERED: PANTOPRAZOLE 20 MG TABLET PO SCH (10:00)
[2021-05-19] MEDS ORDERED: TOPIRAMATE 25 MG TABLET PO SCH (10:00)
[2021-05-19] MEDS ORDERED: CLOPIDOGREL BISULFATE 75 MG TABLET (FP) PO SCH (10:00)
[2021-05-19] MEDS ORDERED: CHOLECALCIFEROL (VIT D3) 1,000 UNIT (25 MCG) TABLET PO SCH (10:00)
[2021-05-19] MEDS ORDERED: TIOTROPIUM BROMIDE 2.5 MCG (SPIRIVA) RESPIMAT INHALER IH SCH (10:00)
[2021-05-19] MEDS ORDERED: CEFTRIAXONE 1 GM in DEXTROSE 5%-WATER - 50 ML IVPB SCH (13:30)
[2021-05-19] MEDS ORDERED: traMADol HCL 50 MG TABLET PO ONE (13:30)
[2021-05-19] MEDS ORDERED: levoFLOXacin 750 MG TABLET PO SCH (14:00)
[2021-05-19] MEDS ORDERED: SODIUM CHLORIDE 500 ML IV STA (14:01)
[2021-05-19 17:20] VITALS: BP 91/50; PULSE 70; TEMP 98.1
[2021-05-19] MEDS ORDERED: ZOLPIDEM TARTRATE 5 MG TABLET PO SCH (22:00)
[2021-05-19] MEDS ORDERED: ATORVASTATIN CA 40 MG TABLET (FP) PO SCH (22:00)
[2021-05-21] MEDS ORDERED: FENTANYL PATCH WASTE TD SCH (22:14)
== END 2021-05-19 15:45 | disposition home or self-care (01) ==
LOC: FER 13:10 → FM/S 17:56 → INTOOBSV 20:03 → UNDOADMOB 20:03 → FM/S 20:03
PROVIDERS: ADMIT Internal Medicine; ATTEND Nurse Practitioner Acute Care
PROC: 3E033GC Introduction of Other Therapeutic Substance into Peripheral Vein, Percutaneous Approach (ICD-10-PCS; principal; 2021-05-18)
PROC: 3E023GC Introduction of Other Therapeutic Substance into Muscle, Percutaneous Approach (ICD-10-PCS; 2021-05-18)
PROC: 3E0337Z Introduction of Electrolytic and Water Balance Substance into Peripheral Vein, Percutaneous Approach (ICD-10-PCS; 2021-05-18)
DX: I10 Essential (primary) hypertension (principal); M32.9 Systemic lupus erythematosus, unspecified; F41.8 Other specified anxiety disorders; M79.7 Fibromyalgia; R79.89 Other specified abnormal findings of blood chemistry; J44.9 Chronic obstructive pulmonary disease, unspecified; I11.9 Hypertensive heart disease without heart failure; Z85.41 Personal history of malignant neoplasm of cervix uteri; I25.2 Old myocardial infarction; Z95.1 Presence of aortocoronary bypass graft; F99 Mental disorder, not otherwise specified; Z90.49 Acquired absence of other specified parts of digestive tract; Z88.8 Allergy status to other drugs, medicaments and biological substances; I25.10 Atherosclerotic heart disease of native coronary artery without angina pectoris; Z88.0 Allergy status to penicillin; Z88.6 Allergy status to analgesic agent; Z86.73 Personal history of transient ischemic attack (TIA), and cerebral infarction without residual deficits; F17.210 Nicotine dependence, cigarettes, uncomplicated
CPT/HCPCS: 36415; 71275-TC; 80048; 80053; 81003; 82550; 83690; 83735; 84484; 85025; 85610; 85730; 87086; 87186; 93005; 96361; 96365; 96372; 99285-25; C9803; G0378; Q9967; U0003; U0005

== ENCOUNTER 2021-10-23 17:54 | Emergency (ER) | payer OTHER ==
[2021-10-23 18:04] VITALS: BP 121/65; PULSE 63; TEMP 98.8; BMI 25.0
[2021-10-23] MEDS ORDERED: morphine CARPU-JECT 4 MG/1 ML DISP.SYRIN IVPUSH ONE (18:28)
[2021-10-23] MEDS ORDERED: morphine SULFATE 4 MG/ML VIAL ONE ×2 (18:46→19:24)
[2021-10-23 19:32] LABS: BILIRUBIN,TOTAL 0.6 mg/dl (0.2-1); CALCIUM 9.1 mg/dl (8.5-10); CREATININE 0.8 mg/dl (0.55-1.3); TOT PROT 7.1 g/dl (6.4-8.2)
[2021-10-23 19:33] LABS: HEMATOCRIT 39.5 % (32.4-45.2); HEMOGLOBIN 13.7 G/dL (10.7-15.3); MCH 32.6 pg (25.7-33.7); MCHC 34.6 g/dl (32.0-36.0); MEAN CELL VOLUME 94.3 fl (80-96); PLATELET COUNT 206.6 10^3/uL (134-434); RBC 4.19 10^6/uL (3.60-5.2); RDW 14.1 % (11.6-15.6); WHITE BLOOD COUNT 6.8 10^3/uL (4.0-10.8)
[2021-10-23 20:31] LABS: PLATELET ESTIMATE ADEQUATE
== END 2021-10-23 21:08 | disposition home or self-care (01) ==
LOC: FER 17:54
PROC: 3E033NZ Introduction of Analgesics, Hypnotics, Sedatives into Peripheral Vein, Percutaneous Approach (ICD-10-PCS; principal; 2021-10-23)
DX: M79.601 Pain in right arm (principal)
CPT/HCPCS: 36415; 80053; 85025; 93971; 99284-25

== ENCOUNTER 2023-08-06 18:04 | Observation (INO) | payer OTHER ==
[2023-08-06 19:22] LABS: HEMATOCRIT 40.6 % (32.4-45.2); HEMOGLOBIN 13.7 G/dL (10.7-15.3); MCH 32.9 pg (25.7-33.7); MCHC 33.7 g/dl (32.0-36.0); MEAN CELL VOLUME 97.5 fl (80-96); MEAN PLT VOLUME 9.6 fl (7.5-11.1); PLATELET COUNT 53.9 10^3/uL (134-434); RBC 4.16 10^6/uL (3.60-5.2); RDW 17.7 % (11.6-15.6); WHITE BLOOD COUNT 6.9 10^3/uL (4.0-10.8)
[2023-08-06 19:41] LABS: ALBUMIN 4.2 g/dl (3.4-5.0); BILIRUBIN,TOTAL 0.5 mg/dl (0.2-1); CALCIUM 10.4 mg/dl (8.5-10.1); CREATININE 0.7 mg/dl (0.6-1.3); MAGNESIUM 1.3 mg/dL (1.8-2.4); TOT PROT 6.8 g/dl (6.4-8.2)
[2023-08-06 19:56] LABS: POTASSIUM 2.6 mmol/L (3.5-5.1)
[2023-08-06] MEDS ORDERED: POTASSIUM CHLORIDE TABS 20 MEQ TABLET.ER (FP) PO ONE (20:00)
[2023-08-06] MEDS: POTASSIUM CHLORIDE TABS 20 MEQ TABLET.ER (FP) PO ONE (20:03)
[2023-08-06] MEDS ORDERED: morphine SULFATE 4 MG/ML VIAL ONE (20:54)
[2023-08-06] MEDS: morphine CARPU-JECT 8 MG/1 ML DISP.SYRIN IVPUSH ONE (20:58)
[2023-08-06 21:30] VITALS: RESP 18
[2023-08-06] MEDS: MAGNESIUM SULFATE IN WATER 2 GM/50 ML IVPB IVPB ONE (22:12)
[2023-08-06] MEDS: SODIUM CHLORIDE 1,000 ML IV SCH (22:13)
[2023-08-06 23:18] VITALS: BMI 22.0
[2023-08-07] MEDS: morphine SULFATE 4 MG/ML VIAL IVPUSH PRN (00:31)
[2023-08-07 08:04] LABS: ALBUMIN 3.7 g/dl (3.4-5.0); ALK PHOS 95 U/L (45-117); ANION GAP 10 mmol/L (4-13); BILIRUBIN,TOTAL 0.4 mg/dl (0.2-1); CALCIUM 9.4 mg/dl (8.5-10.1); CHLORIDE 93 mmol/L (98-107); CO2 34 mmol/L (21-32); CREATININE 0.7 mg/dl (0.6-1.3); GLUCOSE,RANDOM 151 mg/dl (74-106); MAGNESIUM 1.8 mg/dL (1.8-2.4); PHOSPHOROUS 4.8 (2.5-4.9); POTASSIUM 2.7 mmol/L (3.5-5.1); SGOT/AST 92 U/L (15-37); SGPT/ALT 114 U/L (7-52); SODIUM 137 mmol/L (136-145); TOT PROT 5.9 g/dl (6.4-8.2)
[2023-08-07] MEDS: GABAPENTIN 300 MG CAPSULE PO SCH (08:09)
[2023-08-07] MEDS: POTASSIUM CHLORIDE ORAL LIQUID 20 MEQ/15 ML PO SCH (08:30)
[2023-08-07] MEDS: KCL 10 MEQ IVPB 10 MEQ/100 ML INFUS.BAG IVPB SCH (08:32)
[2023-08-07] MEDS: CHOLECALCIFEROL (VIT D3) 1,000 UNIT (25 MCG) TABLET PO SCH (09:52)
[2023-08-07] MEDS: DULoxetine HCL 30 MG CAPSULE.DR PO SCH (09:52)
[2023-08-07] MEDS: TOPIRAMATE 25 MG TABLET PO SCH (09:52)
[2023-08-07] MEDS: CLOPIDOGREL BISULFATE 75 MG TABLET (FP) PO SCH (09:52)
[2023-08-07 10:31] VITALS: TEMP 97.4
[2023-08-07 10:46] LABS: BASO % 0.2 % (0-2.0); HEMOGLOBIN 11.8 GM/dL (10.7-15.3); LYMPH % 41.9 % (8-40); MCH 31.8 pg (25.7-33.7); MCHC 32.8 g/dl (32.0-36.0); MONO % 10.2 % (3.8-10.2); NEUT % 45.7 % (42.8-82.8); PLATELET COUNT 63 10^3/uL (134-434); RBC 3.71 M/mm3 (3.60-5.2); RDW 17.6 % (11.6-15.6); WHITE BLOOD COUNT 6.2 K/mm3 (4.0-10.0)
[2023-08-07] MEDS: POTASSIUM CHLORIDE TABS 20 MEQ TABLET.ER (FP) PO ONE (10:56)
[2023-08-07] MEDS: TRIMETHOBENZAMIDE HCL 200MG/2ML INJ IM PRN (12:16)
[2023-08-07 14:09] VITALS: BP 115/74; PULSE 82
[2023-08-07 16:23] LABS: CALCIUM 9.2 mg/dl (8.5-10.1); CREATININE 0.6 mg/dl (0.6-1.3); POTASSIUM 3.9 mmol/L (3.5-5.1); TOT PROT 5.8 g/dl (6.4-8.2)
[2023-08-07 16:24] LABS: ALBUMIN 3.7 g/dl (3.4-5.0); BILIRUBIN,TOTAL 0.4 mg/dl (0.2-1)
[2023-08-07] MEDS: POTASSIUM CHLORIDE TABS 20 MEQ TABLET.ER (FP) PO SCH (17:19)
== END 2023-08-07 18:35 | disposition home or self-care (01) ==
LOC: FER 18:04 → FM/S 21:12
PROVIDERS: ADMIT Internal Medicine; ATTEND Internal Medicine
PROC: 3E033GC Introduction of Other Therapeutic Substance into Peripheral Vein, Percutaneous Approach (ICD-10-PCS; principal; 2023-08-06)
PROC: 3E023NZ Introduction of Analgesics, Hypnotics, Sedatives into Muscle, Percutaneous Approach (ICD-10-PCS; 2023-08-06)
PROC: 3E033NZ Introduction of Analgesics, Hypnotics, Sedatives into Peripheral Vein, Percutaneous Approach (ICD-10-PCS; 2023-08-06)
PROC: 3E0337Z Introduction of Electrolytic and Water Balance Substance into Peripheral Vein, Percutaneous Approach (ICD-10-PCS; 2023-08-06)
PROC: 3E023GC Introduction of Other Therapeutic Substance into Muscle, Percutaneous Approach (ICD-10-PCS; 2023-08-06)
DX: E87.6 Hypokalemia (principal); I10 Essential (primary) hypertension; R77.8 Other specified abnormalities of plasma proteins; F99 Mental disorder, not otherwise specified; F17.200 Nicotine dependence, unspecified, uncomplicated; J45.909 Unspecified asthma, uncomplicated; Z85.41 Personal history of malignant neoplasm of cervix uteri; E83.42 Hypomagnesemia; R07.9 Chest pain, unspecified; Z86.73 Personal history of transient ischemic attack (TIA), and cerebral infarction without residual deficits; I25.2 Old myocardial infarction; F41.8 Other specified anxiety disorders; I45.6 Pre-excitation syndrome; J44.9 Chronic obstructive pulmonary disease, unspecified; Z99.81 Dependence on supplemental oxygen; G89.29 Other chronic pain; Z88.5 Allergy status to narcotic agent; Z88.8 Allergy status to other drugs, medicaments and biological substances
CPT/HCPCS: 0241U-QW; 36415; 70450-TC; 71045-TC-FY; 72125-TC; 72220-TC-FY; 73030-TC-RT-FY; 80053; 82550; 82607; 82746; 83735; 84100; 84439; 84443; 84484; 85025; 85027; 93005; 96360; 97116-GP; 97162-GP; 99285-25; G0378

== ENCOUNTER 2023-08-18 17:34 | Emergency (ER) | payer OTHER ==
[2023-08-18 17:47] VITALS: TEMP 97.9; BMI 21.6
[2023-08-18] MEDS: SODIUM CHLORIDE 1,000 ML IV STA (18:21)
[2023-08-18] MEDS ORDERED: morphine SULFATE 4 MG/ML VIAL ONE (18:23)
[2023-08-18] MEDS ORDERED: ONDANSETRON 4 MG/2 ML VIAL ONE (18:23)
[2023-08-18] MEDS: ONDANSETRON 4 MG/2 ML VIAL IVPUSH ONE (18:27)
[2023-08-18] MEDS: morphine CARPU-JECT 4 MG/1 ML DISP.SYRIN IVPUSH ONE (18:27)
[2023-08-18 18:34] LABS: HEMATOCRIT 43.1 % (32.4-45.2); HEMOGLOBIN 14.3 G/dL (10.7-15.3); MCH 32.3 pg (25.7-33.7); MCHC 33.2 g/dl (32.0-36.0); MEAN CELL VOLUME 97.4 fl (80-96); MEAN PLT VOLUME 8.2 fl (7.5-11.1); PLATELET COUNT 508.7 10^3/uL (134-434); RBC 4.43 10^6/uL (3.60-5.2); RDW 17.1 % (11.6-15.6); WHITE BLOOD COUNT 6.4 10^3/uL (4.0-10.8)
[2023-08-18 18:36] LABS: INR 0.99 (0.83-1.09); PROTHROMBIN TIME (PATIENT) 11.5 SEC (9.7-13.0)
[2023-08-18 18:50] LABS: ALBUMIN 4.1 g/dl (3.4-5.0); BILIRUBIN,TOTAL 0.3 mg/dl (0.2-1); CALCIUM 9.8 mg/dl (8.5-10.1); CREATININE 0.6 mg/dl (0.6-1.3); POTASSIUM 4.2 mmol/L (3.5-5.1)
[2023-08-18 19:12] VITALS: BP 147/90; PULSE 87; RESP 16
[2023-08-18 20:25] LABS: ANISOCYTOSIS 1+; PLATELET ESTIMATE INCREASED
== END 2023-08-18 19:26 | disposition home or self-care (01) ==
LOC: FER 17:34
PROC: 3E033NZ Introduction of Analgesics, Hypnotics, Sedatives into Peripheral Vein, Percutaneous Approach (ICD-10-PCS; principal; 2023-08-18)
PROC: 3E033GC Introduction of Other Therapeutic Substance into Peripheral Vein, Percutaneous Approach (ICD-10-PCS; 2023-08-18)
PROC: 3E0337Z Introduction of Electrolytic and Water Balance Substance into Peripheral Vein, Percutaneous Approach (ICD-10-PCS; 2023-08-18)
DX: R07.9 Chest pain, unspecified (principal); R10.13 Epigastric pain; R61 Generalized hyperhidrosis; R00.0 Tachycardia, unspecified; B34.9 Viral infection, unspecified; R11.0 Nausea
CPT/HCPCS: 36415; 80053; 80307; 83690; 84484; 85027; 85610; 93005; 99284-25

== ENCOUNTER 2024-11-16 18:34 | Emergency (ER) | payer OTHER ==
[2024-11-16 19:05] VITALS: BP 128/73; PULSE 121; RESP 20; TEMP 98.2; BMI 23.3
[2024-11-16] MEDS ORDERED: morphine SULFATE 4 MG/ML VIAL ONE ×2 (19:40→23:32)
[2024-11-16] MEDS ORDERED: CycloBENZAprine HCL 5 MG TABLET ONE (19:40)
[2024-11-16] MEDS: morphine CARPU-JECT 4 MG/1 ML DISP.SYRIN IM ONE (19:47)
[2024-11-16] MEDS: CycloBENZAprine HCL 10 MG TABLET (FP) PO ONE (19:48)
[2024-11-16] MEDS: morphine CARPU-JECT 2 MG/1 ML DISP.SYRIN IM ONE (21:45)
[2024-11-16] MEDS: morphine CARPU-JECT 2 MG/1 ML DISP.SYRIN SQ ONE (23:38)
== END 2024-11-16 23:58 | disposition home or self-care (01) ==
LOC: FER 18:34
PROC: 3E023NZ Introduction of Analgesics, Hypnotics, Sedatives into Muscle, Percutaneous Approach (ICD-10-PCS; principal; 2024-11-16)
DX: M54.50 Low back pain, unspecified (principal); G89.29 Other chronic pain; R19.7 Diarrhea, unspecified
CPT/HCPCS: 99284-25